=== PATIENT | male | born 1940 | race Caucasian/White ===

== ENCOUNTER → 2016-07-02 | Outpatient (CLI) | payer MEDICARE, BC ==
[2016-07-02 09:48] LABS: Blood Urea Nitrogen 20 mg/dL (9-20); Non-African American GFR(MDRD) >60 (>60 ml/min/1.73 sqM)
--- NOTE | 2016-07-02 10:26 | CT ---
"EXAMINATION TYPE: CT angio chest DATE OF EXAM: 07/02/2016 10:09 AM COMPARISON: NONE HISTORY: Shortness of breath on exertion CT DLP: 543.6 mGycm Automated exposure control for dose reduction was used. CONTRAST: CTA scan of the thorax is performed with IV Contrast, patient injected with 100 mL of Omnipaque 350, pulmonary embolism protocol. . FINDINGS: LUNGS: Subsegmental changes seen posteriorly suggestive of atelectasis. There is a tiny calcified gra nuloma within the right lower lobe posterior segment. Basilar atelectasis noted. There is basilar bro nchiectasis. Correlate for mild COPD. MEDIASTINUM: Within the left lower lobe distal branch there is a filling defect compatible with a sma ll pulmonary embolism. The heart is enlarged. Sternotomy wires are seen and there is coronary artery calcification. Atherosclerotic change of the aorta. There is a hiatal hernia. OTHER: Degenerative changes spine noted with a severe chronic appearing compression deformity in the lower thoracic region. IMPRESSION: 1. Findings suggest a small distal branch left pulmonary artery embolism. 2. Subsegmental changes posteriorly within both lungs likely related to areas of atelectasis. Pneumon itis not excluded. 3. Cardiomegaly and findings suggestive of COPD 4. Basilar mild bronchiectasis A Red message has been communicated to Stu Mosher DO via the [facility] | Critical Result sy stem on 07/02/2016 10:22 AM, Message ID [id number]."
== END ==
LOC: RADCTMAIN 08:45
PROVIDERS: ATTEND Internal Medicine Critical Care Medicine
DX: I51.7 Cardiomegaly (principal); J47.9 Bronchiectasis, uncomplicated
CPT/HCPCS: 82565; 84520; 71275; 36415; Q9967

== ENCOUNTER → 2016-09-15 | Outpatient (CLI) | payer MEDICARE, BC ==
[2016-09-15 09:14] LABS: ALT 30 U/L (21-72); AST 27 U/L (17-59); Alkaline Phosphatase 48 U/L (38-126); Anion Gap 9 mmol/L; Blood Urea Nitrogen 19 mg/dL (9-20); Carbon Dioxide 27 mmol/L (22-30); Chloride 105 mmol/L (98-107); Cholesterol 127 mg/dL (<200); Glucose 95 mg/dL (74-99); HDL Cholesterol 47 mg/dL (40-60); Non-African American GFR(MDRD) >60 (>60 ml/min/1.73 sqM); Potassium 4.6 mmol/L (3.5-5.1); Sodium 141 mmol/L (137-145); Total Bilirubin 0.6 mg/dL (0.2-1.3); Triglycerides 58 mg/dL (<150)
== END | disposition home or self-care (01) ==
LOC: LABWHC1 07:43
PROVIDERS: ATTEND Internal Medicine Interventional Cardiology
DX: E78.2 Mixed hyperlipidemia (principal)
CPT/HCPCS: 36415; 80053; 80061

== ENCOUNTER → 2016-10-07 | Outpatient (CLI) | payer MEDICARE, BC ==
[2016-10-07 11:00] LABS: Blood Urea Nitrogen 24 mg/dL (9-20); Non-African American GFR(MDRD) >60 (>60 ml/min/1.73 sqM)
--- NOTE | 2016-10-07 12:07 | CT ---
EXAMINATION TYPE: CT angio chest DATE OF EXAM: 10/07/2016 11:42 AM COMPARISON: Previous study dated 07/02/2016 HISTORY: F/U prior PE CT DLP: 704 mGycm Automated exposure control for dose reduction was used. CONTRAST: CTA scan of the thorax is performed with IV Contrast, patient injected with 100 mL of Omnipaque 350, pulmonary embolism protocol. . FINDINGS: There is dependent atelectasis at the lung bases. There is no significant axillary, mediastinal or hilar adenopathy. There is no evidence of pulmonary embolus. The root of the aorta is dilated measuring 4.1 cm. At the level of the proximal arch, the aorta measu res 3.9 cm. The proximal descending thoracic aorta is aneurysmal measuring 3.5 cm. At the level of th e aortic hiatus, the aorta is normal in caliber measuring 2.8 cm. The heart is enlarged. There is no pleural or pericardial fluid. There is coronary artery and other v ascular calcifications present. There is a small hiatal hernia. Visualized upper abdominal structures are otherwise unremarkable. There is hypertrophic spondylosis within the spine. IMPRESSION: 1. THIS EXAMINATION IS NEGATIVE FOR PULMONARY EMBOLUS. 2. THORACIC AORTIC ANEURYSM. 3. CARDIOMEGALY. 4. SMALL HIATAL HERNIA. 5. DEGENERATIVE CHANGES WITHIN THE SPINE.
== END | disposition home or self-care (01) ==
LOC: RADCTMAIN 10:08
PROVIDERS: ATTEND Internal Medicine Critical Care Medicine
DX: I71.2 Thoracic aortic aneurysm, without rupture (principal); I51.7 Cardiomegaly; I26.99 Other pulmonary embolism without acute cor pulmonale
CPT/HCPCS: 82565; 84520; 71275; 36415; Q9967

== ENCOUNTER → 2017-10-21 | Outpatient (CLI) | payer MEDICARE, BC ==
[2017-10-21 08:44] LABS: Albumin 3.7 g/dL (3.5-5.0); Calcium 9.4 mg/dL (8.4-10.2); Potassium 4.9 mmol/L (3.5-5.1); Total Bilirubin 0.3 mg/dL (0.2-1.3); Total Protein 6.5 g/dL (6.3-8.2)
== END | disposition home or self-care (01) ==
LOC: LABWHC1 07:15
PROVIDERS: ATTEND Internal Medicine Interventional Cardiology
DX: E78.2 Mixed hyperlipidemia (principal)
CPT/HCPCS: 36415; 80053; 80061

== ENCOUNTER → 2018-04-06 | Outpatient (CLI) | payer MEDICARE, BC ==
--- NOTE | 2018-04-06 11:25 | XR ---
EXAMINATION TYPE: XR chest 2V DATE OF EXAM: 04/06/2018 COMPARISON: 06/11/16 HISTORY: Shortness of breath TECHNIQUE: Frontal and lateral views of the chest are obtained. FINDINGS: Scattered senescent parenchymal changes noted. Hyperinflation compatible with COPD. No evidence for infiltrate. No evidence for atelectasis. Heart size is stable. Mediastinal structures are stable and grossly unremarkable. No evidence for hilar prominence. Degenerative changes dorsal spine. IMPRESSION: 1. No evidence for acute pulmonary disease.
--- NOTE | 2018-04-06 11:26 | CT ---
EXAMINATION TYPE: CT brain wo con DATE OF EXAM: 04/06/2018 COMPARISON: 04/19/2010 HISTORY: New daily persistant headache CT DLP: 1072.[address] of the brain was performed. The ventricles, basal cisterns and sulci overlying the cerebral convexities demonstrate mild enlargem ent. There is no evidence for intracranial hemorrhage or sulcal effacement. There is decreased attenuation about the periventricular white matter and deep white matter of both c erebral hemispheres, compatible with chronic small vessel ischemia. Differential diagnosis does inclu de demyelination. No mass effects are seen.No midline shift. Osseous calvarium is intact. Chronic sinusitis left maxillary sinus. If symptoms persist consider MRI. IMPRESSION: 1. Age related atrophic and chronic small vessel ischemic change without acute intracranial process s een at this time.
--- NOTE | 2018-04-06 11:56 | US ---
EXAMINATION TYPE: US carotid duplex BILAT DATE OF EXAM: 04/06/2018 COMPARISON: CLINICAL HISTORY: R51 new onset of headaches. Hx TIA x 6 years ago, HTN- controlled with meds. Dizzy . Cough. EXAM MEASUREMENTS: RIGHT: Peak Systolic Velocity (PSV) cm/sec ----- Right CCA: 74.6 ----- Right ICA: 74.6 ----- Right ECA: 82.3 ICA/CCA ratio: 1.0 RIGHT: End Diastole cm/sec ----- Right CCA: 13.1 ----- Right ICA: 19.7 ----- Right ECA: 0.0 LEFT: Peak Systolic Velocity (PSV) cm/sec ----- Left CCA: 89.2 ----- Left ICA: 98.2 ----- Left ECA: 62.5 ICA/CCA ratio: 1.1 LEFT: End Diastole cm/sec ----- Left CCA: 14.1 ----- Left ICA: 30.9 ----- Left ECA: 0.0 VERTEBRALS (direction of flow): Right Vertebral: Antegrade Left Vertebral: Antegrade Rhythm: Arrhythmia IMPRESSION: Bilateral wall thickening. Plaque seen throughout CCA's. No elevated velocities or sign ificant stenosis. Criteria for Assigning % of Stenosis / Diameter reduction (Estimation based on the indirect measurements of the internal carotid artery velocities (ICA PSV). 1. Normal (no stenosis)=ICA PSV < 125 cm/s: ratio < 2.0: ICA EDV<40 cm/s. 2. Less than 50% stenosis=ICA PSV < 125 cm/s: ratio < 2.0: ICA EDV<40 cm/s. 3. 50 to 69% stenosis=ICA PSV of 125 to 230 cm/s: ration 2.0 ? 4.0: ICA EDV 40-100 cm/s. 4. Greater than 70% stenosis to near occlusion= ICA PSV > 230 cm/s: ratio > 4.0: ICA EDV > 100 cm/s. 5. Near occlusion= ICA PSV velocities may be low or undetectable: variable ratio and ICA EDV. 6. Total occlusion=unable to detect flow.
== END | disposition home or self-care (01) ==
LOC: RADCTMAIN 10:56
PROVIDERS: ATTEND Midwife
DX: G31.1 Senile degeneration of brain, not elsewhere classified (principal); I67.82 Cerebral ischemia; I65.23 Occlusion and stenosis of bilateral carotid arteries; R05 Cough
CPT/HCPCS: 70450; 71046; 93880

== ENCOUNTER → 2018-04-27 | Outpatient (CLI) | payer MEDICARE, BC ==
[2018-04-27 11:59] LABS: Albumin 4.1 g/dL (3.80-4.90); Albumin/Globulin Ratio 1.71 (1.20-2.10); Anion Gap 7.7 mmol/L (4.00-12.00); Calcium 8.8 mg/dL (8.7-10.3); Carbon Dioxide 27.3 mmol/L (21.6-31.8); Globulin 2.4 g/dL (1.6-3.3); LDL Cholesterol,Calculated 52.8 mg/dL (0.0-131.0); Potassium 4.7 mmol/L (3.5-5.5); Total Bilirubin 0.3 mg/dL (0.2-1.2); Total Protein 6.5 g/dL (6.2-8.2); VLDL Calculation 33.2 mg/dL (5.00-40.00)
== END | disposition home or self-care (01) ==
LOC: LABWHC1 06:29
PROVIDERS: ATTEND Internal Medicine Interventional Cardiology
DX: E78.2 Mixed hyperlipidemia (principal)
CPT/HCPCS: 36415; 80053; 80061

== ENCOUNTER → 2018-11-30 | Outpatient (CLI) | payer MEDICARE, BC ==
--- NOTE | 2018-11-30 09:27 | XR ---
EXAMINATION TYPE: XR chest 2V DATE OF EXAM: 11/30/2018 COMPARISON: NONE HISTORY: Pre-MRI clearance. Evaluate for epicardial pacing leads. TECHNIQUE: Frontal and lateral views of the chest are obtained. FINDINGS: There is no focal air space opacity, pleural effusion, or pneumothorax seen. Post CABG ch anges of the chest are seen. No epicardial pacing wires/leads. The cardiac silhouette size is within normal limits. Flattening of the diaphragms on the lateral view suggests underlying COPD. The osseou s structures are intact. There is diffuse osseous demineralization and poor visualization of vertebra l body height. IMPRESSION: No acute cardiopulmonary process. Post CABG changes the chest. No epicardial pacing wire s are seen.
== END | disposition home or self-care (01) ==
LOC: RADXRMAIN 08:43
PROVIDERS: ATTEND Orthopaedic Surgery
DX: Z01.818 Encounter for other preprocedural examination (principal); Z95.1 Presence of aortocoronary bypass graft
CPT/HCPCS: 71046

== ENCOUNTER → 2019-06-22 | Outpatient (CLI) | payer MEDICARE, BC ==
--- NOTE | 2019-06-28 08:03 | HM ---
HOLTER MONITOR REPORT A 24-hour Holter monitor. A 24-hour Holter monitor for palpitations. The 24-hour Holter monitor shows sinus rhythm, first-degree AV block, 2% to 3% PVC burden, one 4-beat run of nonsustained ventricular tachycardia, one ventricular triplet. No sustained arrhythmias. MMODL / DALTONN: [id number] /
== END | disposition home or self-care (01) ==
LOC: RADECHMAIN 12:01
PROVIDERS: ATTEND Family Medicine
DX: I49.3 Ventricular premature depolarization (principal); I44.2 Atrioventricular block, complete; I47.2 Ventricular tachycardia
CPT/HCPCS: 93225; 93226

== ENCOUNTER → 2019-06-23 | Outpatient (CLI) | payer MEDICARE, BC ==
[2019-06-23 16:45] LABS: African American GFR (CKD) 73.6 (60.0-200.0); Albumin 4.2 g/dL (3.80-4.90); Albumin/Globulin Ratio 2.1 (1.60-3.17); Anion Gap 8.2 mmol/L (4.00-12.00); BUN/Creat Ratio 16.36 Ratio (12.00-20.00); Calcium 8.8 mg/dL (8.7-10.3); Carbon Dioxide 25.8 mmol/L (21.6-31.8); Chol/HDL Ratio 2.74; LDL Cholesterol,Calculated 61.4 mg/dL (0.0-131.0); Non-African American GFR(CKD) 63.5 (60.0-200.0); Potassium 4.2 mmol/L (3.5-5.5); Total Bilirubin 0.6 mg/dL (0.3-1.2); Total Protein 6.2 g/dL (6.2-8.2); VLDL Calculation 11.6 mg/dL (5.00-40.00)
== END | disposition home or self-care (01) ==
LOC: LABWHC1 08:02
PROVIDERS: ATTEND Nurse Practitioner Adult Health
DX: I10 Essential (primary) hypertension (principal); I25.10 Atherosclerotic heart disease of native coronary artery without angina pectoris; E78.2 Mixed hyperlipidemia
CPT/HCPCS: 36415; 80053; 80061

== ENCOUNTER → 2019-12-12 | Outpatient (CLI) | payer MEDICARE, BC ==
[2019-12-12 16:13] LABS: ALT 19 U/L (10-49); AST 22 U/L (14-35); African American GFR (CKD) 46.8 (60.0-200.0); Albumin/Globulin Ratio 1.63 (1.60-3.17); Alkaline Phosphatase 66 U/L (41-126); BUN/Creat Ratio 18.13 Ratio (12.00-20.00); Calcium 8.9 mg/dL (8.7-10.3); Carbon Dioxide 26.4 mmol/L (21.6-31.8); Chloride 107 mmol/L (96-109); Chol/HDL Ratio 2.48; Cholesterol 104 mg/dL (0-200); Globulin 2.4 g/dL (1.6-3.3); Glucose 97 mg/dL (70-110); Non-African American GFR(CKD) 40.4 (60.0-200.0); Potassium 4.6 mmol/L (3.5-5.5); Sodium 140 mmol/L (135-145); Total Bilirubin 0.4 mg/dL (0.2-1.2); Total Protein 6.3 g/dL (6.2-8.2); Triglycerides <50.0 mg/dL (0.0-149.0)
== END | disposition home or self-care (01) ==
LOC: LABWHC1 07:58
PROVIDERS: ATTEND Internal Medicine Interventional Cardiology
DX: E78.2 Mixed hyperlipidemia (principal)
CPT/HCPCS: 36415; 80053; 80061

== ENCOUNTER → 2020-01-02 | Outpatient (CLI) | payer MEDICARE, BC ==
--- NOTE | 2020-01-02 09:39 | XR ---
"EXAMINATION TYPE: XR lumbosacral spine min 4V DATE OF EXAM: 01/02/2020 CLINICAL HISTORY: Chronic back pain from a long time ago. TECHNIQUE: Frontal, lateral, and oblique images of the lumbar spine are obtained. COMPARISON: None FINDINGS: There are 5 lumbar type vertebral bodies identified. Osseous structures are demineralized. There is dextroconvex scoliosis centered at L3 level. Grade 1 anterolisthesis L4 on L5. Severe disc space narrowing L4-L5 and L5-S1 levels. Moderate disc space narrowing L3-L4 level. Moderate to severe compression type fracture L1 level presumed chronic. Grade 1 retrolisthesis T12 and L1. Moderate to severe anterior spurring T12-L1 and L1-L2 levels. Moderate disc space narrowing L1-L2 level. The obli que images value is degraded by underlying scoliosis. Densely calcified aorta with AAA measuring up t o 4.4 cm AP diameter. Follow-up advised to better evaluate and characterize. IMPRESSION: As above. A Yellow level critical message alert has been initiated for Moshe Graves MD via the [employer] [facility] | Critical Results System on 01/02/2020 9:37 AM. This message alert has been sent to Moshe Graves MD via the preferences provided by the clinician for the receipt of Radiology Critical Findings. Mess age ID [id number]."
== END | disposition home or self-care (01) ==
LOC: RADXRMAIN 09:07
PROVIDERS: ATTEND Family Medicine
DX: M48.061 Spinal stenosis, lumbar region without neurogenic claudication (principal); M43.16 Spondylolisthesis, lumbar region; M41.86 Other forms of scoliosis, lumbar region
CPT/HCPCS: 72110

== ENCOUNTER → 2020-01-23 | Outpatient (CLI) | payer MEDICARE, BC ==
--- NOTE | 2020-01-23 16:20 | US ---
EXAMINATION TYPE: US duplex aorta DATE OF EXAM: 01/23/2020 COMPARISON: F/u to x-ray showing AAA CLINICAL HISTORY: I74.2 Embolism and thrombosis of arteries of the. EXAM MEASUREMENTS: Abdominal Aorta: Proximal: obscured by bowel gas Mid: 3.8 x 3.5cm AAA Distal: obscured by bowel gas Bifurcation: obscured by bowel gas Severe overlying bowel gas, exam shows very limited visualization of AAA. Aneurysm may be overestimat ed or underestimated. IMPRESSION: 1. There appears to be some prominence of the mid abdominal aorta with an AP diameter of 3.8 cm. Some fusiform prominence should be considered. 2. Abdominal aorta has limited evaluation due to the excessive bowel gas.
== END | disposition home or self-care (01) ==
LOC: RADUSWWP 07:32
PROVIDERS: ATTEND Family Medicine
DX: I71.4 Abdominal aortic aneurysm, without rupture (principal)
CPT/HCPCS: 93979

== ENCOUNTER → 2020-01-27 | Outpatient (CLI) | payer MEDICARE, BC ==
--- NOTE | 2020-01-27 09:33 | MR ---
EXAMINATION TYPE: MR lumbar spine wo con DATE OF EXAM: 01/27/2020 COMPARISON: Lumbar spine x-ray January 02, 2020. CT chest October 07, 2016 HISTORY: Compression fx per order, pain TECHNIQUE: Multiplanar, multisequence imaging of the lumbar spine is performed without IV contrast. FINDINGS: There is persistent dextroconvex scoliosis centered upper lumbar spine Sagittal images of t he lumbar spine show vertebral body heights to appear satisfactory in the lumbar spine. Moderate ante rior height loss and superior height loss T12 level not significantly changed from 2017 CT chest. Mul tilevel disc desiccation is present. Advanced disc space narrowing and vacuum disc phenomenon L4-L5 l evel, Modic type I endplate changes noted at this level. Additional mild multilevel disc space narrow ing. The conus medullaris is normal in position and signal ending at T12-L1 disc space level. There i s additional heterogeneous Modic type II endplate changes posterior T12-L1 level. Slight grade 1 ante rolisthesis L3 on L4. Axial images at the T12-L1 level shows moderate broad-based posterior disc protrusion mildly effacing anterior thecal sac with mild left-sided facet arthropathy and ligamentum flavum hypertrophy. There is [id number] left-sided neural foraminal narrowing. Axial images at the L1-L2 level show mild to moderate facet degenerative changes bilaterally. There i s mild broad disc bulge. There is moderate left and mild right-sided neural foraminal narrowing. Axial images at L2-L3 level show moderate broad disc bulge and [id number] facet arthropathy and ligamentum flavum hypertrophy. There is mild effacement of the anterior left posterior lateral theca l sac. There is moderate left and mild right-sided neural foraminal narrowing. Axial images at L3-L4 level show spondylolisthesis with moderate facet arthropathy bilaterally. There is moderate broad disc bulge. There is effacement of the anterior and right posterior lateral thecal sac. There is moderate right greater than left bilateral neural foraminal narrowing. Axial images at the L4-L5 level show partially sacralized right L5 segment. There is posterior spur d isc complex mildly effaces the anterior thecal sac. There is mild right greater than left facet arthr opathy. Left-sided neural foramen is patent. Right side shows moderate narrowing. Axial images at the L5-S1 level on image 2 show tiny central disc protrusion but spinal canal is pres erved. Bilateral neural foramina are patent. Mild/moderate facet arthropathy bilaterally. There is co nfirmation of infrarenal AAA measuring up to 3.5 cm AP diameter axial image 19. This correlates john r with recent ultrasound. IMPRESSION: Scoliosis redemonstrated. Multilevel degenerative changes noted as detailed above. Sacral ized right L5 segment noted. Confirmation of AAA measuring up to 3.5 cm AP diameter on this study.
== END | disposition home or self-care (01) ==
LOC: RADMRIMAIN 08:15
PROVIDERS: ATTEND Nurse Practitioner Family
DX: M47.816 Spondylosis without myelopathy or radiculopathy, lumbar region (principal); M41.9 Scoliosis, unspecified; M43.27 Fusion of spine, lumbosacral region
CPT/HCPCS: 72148

== ENCOUNTER → 2020-04-03 | Outpatient (CLI) | payer MEDICARE, BC ==
[2020-04-03 08:30] VITALS: BP 160/79; PULSE 56; RESP 16; TEMP 97.5
--- NOTE | 2020-04-03 08:43 | P.PAINCN ---
History of Present Illness - Reason for Consult Consult date: 04/03/20 - History of Present Illness This is a 79-year-old patient referred by Dr. Cope with a chief complaint of chronic pain in the low back. Patient has a long-standing history of low back pain. 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 His pain is located in his low back with no radiation into the lower extremity. He does endorse what he calls hot spot over his left anterior thigh that occasionally bothers him. He described as dull and aching and worse at night. It is alleviated almost to 0 out of 10 when he is sitting and worse with activity. Currently it is 0 out of 10, at its worst it's a 5-6 out of 10. He is currently doing physical therapy, just started yesterday. He feels that this is already helping him. He has not taken pain medications in the past and he can remember. He did get an injection many years ago, thought it might be an epidural but this did not help him at all. Patient denies adverse drug effects from medications. Patient also denies new-onset weakness, bowel/bladder incontinence, or any other signs or symptoms of cauda equina syndrome. There are no signs of acute intoxication, and no indications of medication diversion or overuse. In addition to above, 13-point review of systems is also negative for chest pain, shortness of breath, changes in vision, changes in hearing, new onset weakness, abdominal pain, diarrhea, extreme fatigue, malaise, fever, skin changes, homicidal or suicidal ideation, or bowel or bladder incontinence. Physical exam: Vital Signs: Reviewed in EMR GENERAL: Well appearing, in no acute distress PSYCH: Mood and affect is appropriate. Awake, alert, and oriented SKIN: Skin color, texture, turgor normal, no rashes or lesions HEENT: Normocephalic, atraumatic. EOM intact CV: No pedal edema RESP: Respirations are unlabored, no audible wheezing GI: Abdomen non-distended MUSCULOSKELETAL: Bilateral upper and lower extremity strength is normal and symmetric. No atrophy or tone abnormalities are noted. Lumbar spine: Straight leg raising in the sitting position is negative for radicular pain. No pain to palpation over the lumbar spine and paraspinous muscles. Negative for pain with facet loading and back extension/rotation. Normal range of motion without pain reproduction Buttocks: No pain to palpation over the PSIS, Karen test is negative Extremities: Peripheral joint ROM is full and pain free without obvious instability or laxity in all four extremities. No edema or skin discolorations noted. Gait: Gait is normal NEUR: Bilateral upper and lower extremity coordination and muscle stretch reflexes are physiologic and symmetric. Negative clonus. No loss of sensation is noted. Cranial nerves are grossly intact. Imaging: Lumbar MRI from 01/27/20 reviewed Assessment: 1. Axial low back pain likely due to facet arthropathy 2. Myofascial pain Plan: 1. Explanation: Diagnoses, prognoses, and multiple treatment options including but not limited to physical therapy, interventional therapies, medication management and surgery were discussed with the patient and all questions were answered to the patient's satisfaction. 2. Investigations: Lumbar MRI 01/26 reviewed 3. Counseling: The patient was counseled for 3 minutes on SMOKING CESSATION, BODY MASS INDEX, EXERCISE. Specifically, the patient was instructed regarding the importance of smoking cessation, weight control, and exercise in the context of both chronic pain and overall health. 4. Procedures: Given his MRI findings and symptoms, I have scheduled him for a bilateral L2-L3 and L3-L4 steroid facet joint injection. 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 5. Consultations: continue PT 6. Medications: Written for meloxicam 7.5 mg once a day. I have also written for lidocaine patches for him as well. I instructed him he can place his over his low back and area of left thigh pain as needed 7. Disposition: for above procedure Past Medical History Past Medical History: Cancer, CVA/TIA, Eye Disorder, Hyperlipidemia, Hypertension, Memory Impairment, Musculoskeletal Disorder, Osteoarthritis (OA), Prostate Disorder Additional Past Medical History / Comment(s): hx. prostate cancer 15 yrs. ago- radioactive seeds implanted, skin cancer, pancreatitis several years ago, TIA 5- 6 yrs. ago-memory impairment, macular degeneration left eye History of Any Multi-Drug Resistant Organisms: None Reported Past Surgical History: Coronary Bypass/CABG, Orthopedic Surgery, Tonsillectomy Additional Past Surgical History / Comment(s): triple bypass 15 yrs. ago, left rotator cuff repair Past Anesthesia/Blood Transfusion Reactions: No Reported Reaction Smoking Status: Former smoker Medications and Allergies Home Medications Medication Instructions Recorded Confirmed Type Aspirin 81 mg PO DAILY 03/29/20 03/29/20 History Doxazosin [Cardura] 4 mg PO DAILY 03/29/20 03/29/20 History Metoprolol Tartrate [Lopressor] 25 mg PO BID 03/29/20 03/29/20 History Multivitamins, Thera [Multivitamin 1 tab PO DAILY 03/29/20 03/29/20 History (formulary)] Olmesartan [Benicar] 20 mg PO DAILY 03/29/20 03/29/20 History Simvastatin [Zocor] 20 mg PO HS 03/29/20 03/29/20 History Triamterene/Hydrochlorothiazid 1 each PO DAILY 03/29/20 03/29/20 History [Triamterene-Hctz 37.5-25 mg Tb] Vit C/E/Zn/Coppr/Lutein/Zeaxan 1 each PO DAILY 03/29/20 03/29/20 History [Preservision Areds 2 Softgel] Allergies Allergy/AdvReac Type Severity Reaction Status Date / Time No Known Allergies Allergy Verified 03/29/20 14:46 PQRS Measure Charge Sheet Measure #226: Tobacco Use: Screen & Cessation Intervention: Pt not a tobacco user Measure #111: Pneumonia Vaccination: Pneumococcal vaccine NOT administered or previously given Measure #47: Advance Care Plan: Advance care planning discussed & documented, pt chose/unable to give Measure #412: Opioid Treatment Agreement: No documentation of signed opioid tr eatment agreement Measure #317: Preventitive Care & Scrn High Bld Press & F/U: Normal blood pressure, f/u not required Measure #128: Body Mass Index (BMI) Screening & Follow-up: BMI documented within normal parameters Measure #131: Pain Assessment & Follow-up: Pain positive & plan documented, Follow-up scheduled PQRS Narrative: Pain Intensity [Lower Back] 0 Scale Used Numeric (1 - 10) Hx Alcohol Use (MH) No Home Medications: Ambulatory Orders Aspirin 81 mg PO DAILY 03/29/20 Doxazosin [Cardura] 4 mg PO DAILY 03/29/20 Metoprolol Tartrate [Lopressor] 25 mg PO BID 03/29/20 Multivitamins, Thera [Multivitamin (formulary)] 1 tab PO DAILY 03/29/20 Olmesartan [Benicar] 20 mg PO DAILY 03/29/20 Simvastatin [Zocor] 20 mg PO HS 03/29/20 Triamterene/Hydrochlorothiazid [Triamterene-Hctz 37.5-25 mg Tb] 1 each PO DAILY 03/29/20 Vit C/E/Zn/Coppr/Lutein/Zeaxan [Preservision Areds 2 Softgel] 1 each PO DAILY 03/29/20
== END | disposition home or self-care (01) ==
LOC: PNWHC3 08:06
PROVIDERS: ATTEND Anesthesiology
DX: M47.816 Spondylosis without myelopathy or radiculopathy, lumbar region (principal); M54.5 Low back pain; M79.18 Myalgia, other site; E78.5 Hyperlipidemia, unspecified; I10 Essential (primary) hypertension; Z79.82 Long term (current) use of aspirin; Z79.899 Other long term (current) drug therapy
CPT/HCPCS: 99211

== ENCOUNTER 2020-04-18 06:23 | Day surgery (SDC) | payer MEDICARE, BC ==
[2020-04-16 14:12] VITALS: BMI 31.3
[~2020-04-18 06:23] MED LIST: LACTATED RINGERS 1,000 ML IV SCH
[2020-04-18 06:51] VITALS: BP 130/64; PULSE 58; RESP 16; TEMP 97.6
--- NOTE | 2020-04-18 07:13 | P.PN ---
Progress Note - Text Progress Note Date: 04/18/20 This 79 years old male who was scheduled to have bilateral medial branch blocks, to target the facet joint at L2-3 and L3 4, and today is supposed to be the first diagnostic block, during the interview, patient reported that he is leaving to [place] next weekend, and he was expecting ,that the treatment will be completed today, I explained to the patient, and his ,that this will be of process will take a few weeks, before we can do the radiofrequency ablation of the medial branch, and today will be the first diagnostic block, in couple of weeks we will do the second diagnostic block, and if he had positive result, then we will proceed with the radiofrequency ablation of the medial branch, and the process needs a few weeks ,before we can finish the treatment, and because patient leaving to [place] within few days, the best option is to cancel the procedure and reschedule the patient after he comes back from [place]
== END 2020-04-18 07:06 | disposition home or self-care (01) ==
LOC: ORPAIN 06:23
PROVIDERS: ATTEND Specialist
DX: M51.16 Intervertebral disc disorders with radiculopathy, lumbar region (principal); Z53.8 Procedure and treatment not carried out for other reasons

== ENCOUNTER → 2020-09-02 | Outpatient (CLI) | payer MEDICARE, BC ==
[2020-09-02 17:33] LABS: Basophils # (A) 0.04 X 10*3/uL (0.00-0.10); Basophils % (A) 0.6 %; Eosinophils # (A) 0.18 X 10*3/uL (0.04-0.35); Eosinophils % (A) 2.8 %; HCT 35.3 % (39.6-50.0); HGB 11.3 g/dL (13.0-17.0); Lymphocytes % (A) 23.6 %; MCH 32.1 pg (27.0-32.0); MCV 100.3 fL (80.0-97.0); Monocytes # (A) 0.68 X 10*3/uL (0.20-1.00); Monocytes % (A) 10.7 %; Neutrophils # (A) 3.93 X 10*3/uL (1.80-7.70); Platelet Count 222 X 10*3/uL (140-440); RBC 3.52 X 10*6/uL (4.40-5.60); RDW 12.5 % (11.5-14.5); WBC 6.35 X 10*3/uL (4.50-10.00)
[2020-09-02 20:21] LABS: ALT 19 U/L (10-49); AST 24 U/L (14-35); African American GFR (CKD) 59.7 (60.0-200.0); Albumin/Globulin Ratio 1.65 (1.60-3.17); Alkaline Phosphatase 58 U/L (41-126); BUN/Creat Ratio 18.46 Ratio (12.00-20.00); Calcium 8.8 mg/dL (8.7-10.3); Carbon Dioxide 25.9 mmol/L (21.6-31.8); Chloride 107 mmol/L (96-109); Chol/HDL Ratio 2.78; Cholesterol 103 mg/dL (0-200); Globulin 2.3 g/dL (1.6-3.3); Glucose 92 mg/dL (70-110); LDL Cholesterol,Calculated 55.6 mg/dL (0.0-131.0); Non-African American GFR(CKD) 51.5 (60.0-200.0); Potassium 4.7 mmol/L (3.5-5.5); Sodium 139 mmol/L (135-145); Total Bilirubin 0.3 mg/dL (0.2-1.2); Total Protein 6.1 g/dL (6.2-8.2)
[2020-09-02 20:44] LABS: Prostate Specific Antigen <0.1 ng/mL (0.0-6.5)
== END | disposition home or self-care (01) ==
LOC: LABWHC1 07:34
PROVIDERS: ATTEND Nurse Practitioner Adult Health
DX: Z00.00 Encounter for general adult medical examination without abnormal findings (principal); E78.2 Mixed hyperlipidemia; Z85.46 Personal history of malignant neoplasm of prostate
CPT/HCPCS: 36415; 80053; 80061; 84153; 85025

== ENCOUNTER 2020-09-06 07:28 | Day surgery (SDC) | payer MEDICARE, BC ==
[2020-09-05 08:53] VITALS: BMI 32.3
[2020-09-06 07:54] VITALS: TEMP 97
[2020-09-06] MEDS ORDERED: LACTATED RINGERS 1,000 ML IV ONE (08:02)
[2020-09-06] MEDS ORDERED: LIDOCAINE 1% (10MG/ML) FOR IV START INTRADERMA ONE (08:02)
[2020-09-06] MEDS ORDERED: IOPAMIDOL M200 10 ML VIAL ONE (08:38)
[2020-09-06] MEDS ORDERED: ROPIVACAINE 5MG/ML 20ML VIAL ONE (08:38)
[2020-09-06] MEDS ORDERED: TRIAMCINOLONE ACETONIDE 40 MG/ML 1 ML VIAL ONE (08:38)
[2020-09-06] MEDS ORDERED: fentaNYL (PF) 50 MCG/ML 2 ML AMP ONE (08:38)
--- NOTE | 2020-09-06 08:52 | P.PCN ---
Date of Procedure: 09/06/20 Description of Procedure: PREOPERATIVE DIAGNOSIS : Lumbar spondylosis with Facet Arthropathy without myelopathy POSTOPERATIVE DIAGNOSIS: same PROCEDURE: first Diagnostic lumbar medial branch block with fluoroscopy at L1, L2, L3 [bilateral] which covers facets L2-3 and L3-4 ANESTHESIA: Monitored anesthesia care as per anesthesia department. Fluoroscopy was used for the procedure and images were saved in the radiology portion of the chart. Surgeon: Carlos Mccrary MD PROCEDURE INDICATION: Lumbar back pain without radiculopathy, not responsive to conservative management. PROCEDURE DESCRIPTION: the patient was seen and identified in the preop holding area , risks and benefits and possible complications of the procedure and alternatives were discussed with the patient, and the patient agreed to proceed with the procedure and signed the consent . IV was started , vital signs were monitored during the procedure and fluoroscopy was used to maximize the benefit and accuracy of the needle placement, and sedation was given to decrease patient anxiety. Patient was taken to the procedure room and placed in prone position. The lumbar region was prepped using chlorhexidineX-2. Under strict sterile technique using AP fluoroscopy the bilateral sacral ala were identified and using ipsilateral oblique fluoroscopy ,the junction of the transverse process and the superior articulating process of the L2, L3, L4 vertebra which corresponds to the fluoroscopy image of the eye of the Brannon dog for the medial branches were identified. Subsequently, after local infiltration of skin with lidocaine 1% 0.2 mL at each level , a 25-gauge 3.5" Quincke-type needle was placed at the junction of the base of the transverse process and the superior articular process at the appropriate level as well as the sacral ala, and the needle was advanced until the periosteum contacted, needle placement confirmed with AP and oblique fluoroscopy, 0.2 mL of Isovue 200 per level was injected which revealed no vascular uptake and after negative aspiration. I cheyanne up 5 mL of 0.5% ropivacaine and 1 mL of 40 mg/mL kenalog and injected 1 mL of this injectate at each level and the needle subsequently removed . A total of [2 levels injected bilaterally] At the end of the procedure and the needles were removed and a bandage applied after the skin was cleaned. The patient was taken to recovery room in stable condition and monitors in the recovery room for 20-30 minutes and discharged home in stable condition after discharge criteria met and patient will follow up in clinic in 2 weeks EBL: Minimal COMPLICATION: None.
[2020-09-06] MEDS ORDERED: IV FLUID CONTINUATION 1,000 ML IV ONE (08:57)
--- NOTE | 2020-09-06 09:08 | FL ---
EXAMINATION TYPE: FL guided pain mgmt statistic DATE OF EXAM: 09/06/2020 CLINICAL HISTORY: Low back pain. TECHNIQUE: Fluoroscopy. COMPARISON: None. FINDINGS: Fluoroscopic guidance was provided during pain relief procedure performed by Dr. Price . A total of 10 seconds of fluoroscopic time was utilized during the procedure and two spot images a re acquired. Images acquired shows needle localization at levels in the lumbar spine. IMPRESSION: As Above.
[2020-09-06 09:14] VITALS: BP 119/61; PULSE 58; RESP 16
== END 2020-09-06 09:35 | disposition home or self-care (01) ==
LOC: ORPAIN 07:28
PROVIDERS: ATTEND Anesthesiology
DX: M47.816 Spondylosis without myelopathy or radiculopathy, lumbar region (principal); I25.10 Atherosclerotic heart disease of native coronary artery without angina pectoris; I10 Essential (primary) hypertension; E78.5 Hyperlipidemia, unspecified; Z85.46 Personal history of malignant neoplasm of prostate; Z86.73 Personal history of transient ischemic attack (TIA), and cerebral infarction without residual deficits; M19.90 Unspecified osteoarthritis, unspecified site; Z95.1 Presence of aortocoronary bypass graft; Z79.82 Long term (current) use of aspirin; Z79.899 Other long term (current) drug therapy
CPT/HCPCS: 64493; 64494; J3301; J3010; Q9966; J2795

== ENCOUNTER → 2020-09-25 | Outpatient (CLI) | payer MEDICARE, BC ==
[2020-09-25 08:25] VITALS: BP 134/72; PULSE 58; RESP 16; TEMP 97.7
--- NOTE | 2020-09-25 08:38 | P.PN ---
Subjective Progress Note Date: 09/25/20 This is a follow-up visit for this 80 years old male with a chronic history of severe low back pain, he is diagnosed with lumbar spondylosis with lumbar facet arthropathy, recentley we have done diagnostic medial branch block lumbar area, that excellent pain relief after the block history as before the block was 7/10, dropped to 0/10 after the block and he was able to do more activity, he denies any fever or night sweats he denies any motor or sensory deficits, he denies any change in the bowel movement or urination Objective - Vital Signs Vital signs: Vital Signs Temp 97.7 F 09/25/20 08:20 Pulse 58 L 09/25/20 08:20 Resp 16 09/25/20 08:20 BP 134/72 09/25/20 08:20 Pulse Ox 96 09/25/20 08:20 - Exam Vital Signs: Reviewed in EMR GENERAL: Well appearing, in no acute distress PSYCH: Mood and affect is appropriate. Awake, alert, and oriented SKIN: Skin color, texture, turgor normal, no rashes or lesions HEENT: Normocephalic, atraumatic. EOM intact MUSCULOSKELETAL: Bilateral upper and lower extremity strength is normal and symmetric. No atrophy or tone abnormalities are noted. Lumbar spine: Straight leg raising in the sitting position is negative for r adicular pain. No pain to palpation over the lumbar spine and paraspinous muscles. Negative for pain with facet loading =+ bilaterally NEUR: Bilateral upper and lower extremity coordination and muscle stretch reflexes are physiologic and symmetric. Negative clonus. No loss of sensation is noted. Cranial nerves are grossly intact. Assessment and Plan Plan: Assessment and plan=1-lumbar spondylosis with lumbar facet arthropathy without myelopathy he had excellent pain relief after the first diagnostic medial branch block and he will be scheduled to have second diagnostic medial branch block at L1, L2, L3, bilaterally - PQRS measures = - Patient's medications are documented in the chart. -Tobacco use is negative and counseling.Given. -Patient's has not received pneumococcal vaccine. -Advanced care planning discussed, patient not eligible. -Opiate contract not signed. -Pain positive and follow-up visit/procedure is scheduled. -Patient's blood pressure measured [134/72 ] , and documented in the record ,and patient will follow up with the primary care. -Patient's weight was measured and body mass index [31.3 ] above the normal limits and counseling was done. and patient instructed to follow-up with the primary care physician. -Patient was not identified as an unhealthy alcohol user Time with Patient: Less than 30
== END ==
LOC: PNWHC3 08:07
PROVIDERS: ATTEND Specialist
DX: M47.816 Spondylosis without myelopathy or radiculopathy, lumbar region (principal)
CPT/HCPCS: 99211

== ENCOUNTER → 2020-10-15 | Outpatient (CLI) | payer MEDICARE, BC ==
--- NOTE | 2020-10-15 10:12 | US ---
EXAMINATION TYPE: US duplex aorta DATE OF EXAM: 10/15/2020 COMPARISON: US 01/23/2020 CLINICAL HISTORY: I71.4 AAA. Takes medication for HTN. EXAM MEASUREMENTS: Abdominal Aorta: Proximal: 3.5 x 3.0cm Mid: 2.7 x 2.5cm Distal: 2.6 x 2.5cm Bifurcation: Right DONNA = 1.9 x 2.0cm; Left DONNA = 1.2 x 1.3cm. Fusiform appearance to abdominal aorta with enlarged portions measured; and enlarged right DONNA with i ntimal wall changes in bilateral DONNA. Color flow patency is noted in AA and into DONNA bilaterally. IMPRESSION: Proximal abdominal aortic aneurysm measures up to 3.5 cm, previously measured up to 3.6 cm.
--- NOTE | 2020-10-15 10:39 | CT ---
EXAMINATION TYPE: CT brain w con DATE OF EXAM: 10/15/2020 COMPARISON: CT brain 04/06/2018 HISTORY: Memory Impairment CT DLP: 1098.8 mGycm Automated exposure control for dose reduction was used. CONTRAST: CT scan of the head is performed with IV Contrast, patient injected with 100 mL of Isovue 300. FINDINGS: There is no abnormal enhancing mass or midline shift identified. The ventricles and sulci are stable , extra-axial fluid over the left frontal region causes some local mass effect on the frontal lobe as on prior exam, thickness of the extra-axial fluid which show cerebral spinal fluid density is approx imately 2.6 cm on the coronal image 20, similar to prior exam. Medial to the right cerebellar hemisph ere is also a low-attenuation area measuring 2.3 x 0.8 x 1 cm short cerebral spinal fluid attenuation similar to prior There are dense cerebral vascular calcifications. Cortical atrophy is noted. Perive ntricular white matter shows patchy low attenuation. The globes are intact and the visualized sinuses are clear. IMPRESSION: There may be an arachnoid cyst over the left frontal lobe causing some local mass effect on the front al cortex. Possible smaller arachnoid cyst posterior fossa. There is age-related atrophy and probable chronic small vessel ischemic change.
== END | disposition home or self-care (01) ==
LOC: RADCTMAIN 08:33
PROVIDERS: ATTEND Family Medicine
DX: I71.4 Abdominal aortic aneurysm, without rupture (principal); I10 Essential (primary) hypertension; R41.3 Other amnesia
CPT/HCPCS: 82565; 84520; 93979; 70460; 36415; Q9967

== ENCOUNTER 2020-10-17 06:58 | Day surgery (SDC) | payer MEDICARE, BC ==
[2020-10-17 07:27] VITALS: TEMP 98
[2020-10-17] MEDS ORDERED: fentaNYL (PF) 50 MCG/ML 2 ML AMP ONE (08:03)
[2020-10-17] MEDS ORDERED: ROPIVACAINE 5MG/ML 20ML VIAL ONE (08:03)
[2020-10-17] MEDS ORDERED: TRIAMCINOLONE ACETONIDE 40 MG/ML 1 ML VIAL ONE (08:03)
[2020-10-17] MEDS ORDERED: MIDAZOLAM 2 MG/2 ML VIAL ONE (08:03)
--- NOTE | 2020-10-17 08:25 | P.PCN ---
Date of Procedure: 10/17/20 Surgeon: Bert Cabrera Pathology: none sent Condition: stable Disposition: PACU Description of Procedure: PREOPERATIVE DIAGNOSIS : Lumbar spondylosis with Facet Arthropathy without myelopathy POSTOPERATIVE DIAGNOSIS: same PROCEDURE: first Diagnostic lumbar medial branch block with fluoroscopy at L1, L2, L3 [bilateral] which covers facets L2-3 and L3-4 ANESTHESIA: local with 1% lidocaine and moderate IV conscious sedation Fluoroscopy was used for the procedure and images were saved in the radiology portion of the chart. Surgeon: Carlos Mccrary MD PROCEDURE INDICATION: Lumbar back pain without radiculopathy, not responsive to conservative management. PROCEDURE DESCRIPTION: the patient was seen and identified in the preop holding area , risks and benefits and possible complications of the procedure and alternatives were discussed with the patient, and the patient agreed to proceed with the procedure and signed the consent . IV was started , vital signs were monitored during the procedure and fluoroscopy was used to maximize the benefit and accuracy of the needle placement, and sedation was given to decrease patient anxiety. Patient was taken to the procedure room and placed in prone position. The lumbar region was prepped using chlorhexidineX-2. the patient has severe scoliosis on the AP view of fluoroscopy.Under strict sterile technique using AP fluoroscopy the bilateral sacral ala were identified and using ipsilateral oblique fluoroscopy ,the junction of the transverse process and the superior articulating process of the L2, L3, L4 vertebra which corresponds to the fluoroscopy image of the eye of the Brannon dog for the medial branches were identified. Subsequently, after local infiltration of skin with lidocaine 1% 0.2 mL at each level , a 22-gauge 3.5" Quincke-type needle was placed at the junction of the base of the transverse process and the superior articular process at the appropriate level as well as the sacral ala, and the needle was a dvanced until the periosteum contacted, needle placement confirmed with AP and oblique fluoroscopy, a solution of 5 mL of 0.5% ropivacaine and 1 mL of 40 mg/mL kenalog was prepared and I injected 1 mL of this injectate at each level and the needle subsequently removed . A total of [2 levels injected bilaterally] At the end of the procedure and the needles were removed and a bandage applied after the skin was cleaned. The patient was taken to recovery room in stable condition and monitors in the recovery room for 20-30 minutes and discharged home in stable condition after discharge criteria met and patient will follow up in clinic in 2 weeks EBL: Minimal COMPLICATION: None.
[2020-10-17] MEDS ORDERED: IV FLUID CONTINUATION 1,000 ML IV ONE (08:30)
[2020-10-17 08:34] VITALS: RESP 16
[2020-10-17 08:49] VITALS: BP 118/68; PULSE 68
--- NOTE | 2020-10-17 09:15 | FL ---
EXAMINATION TYPE: FL guided pain mgmt statistic DATE OF EXAM: 10/17/2020 CLINICAL HISTORY: Mid to Low back pain. TECHNIQUE: Fluoroscopy. COMPARISON: None. FINDINGS: Fluoroscopic guidance was provided during pain relief procedure performed by Dr. Cabrera . A total of 10 seconds of fluoroscopic time was utilized during the procedure and 4 spot images are acquired. Images acquired shows needle localization at several levels nearly thoracolumbar junction. IMPRESSION: As Above.
== END 2020-10-17 09:00 | disposition home or self-care (01) ==
LOC: ORPAIN 06:58
PROVIDERS: ATTEND Anesthesiology
DX: M47.816 Spondylosis without myelopathy or radiculopathy, lumbar region (principal); Z79.82 Long term (current) use of aspirin
CPT/HCPCS: 64493; 64494; 64495; J2250; J3301; J3010; J2795; 99152

== ENCOUNTER → 2020-11-13 | Outpatient (CLI) | payer MEDICARE, BC ==
[2020-11-13 08:14] VITALS: BP 101/53; PULSE 51; RESP 18; TEMP 97.6
--- NOTE | 2020-11-13 08:33 | P.PN ---
Subjective Progress Note Date: 11/13/20 This is a follow-up visit for this 80 years old male with a chronic history of severe low back pain, he is diagnosed with lumbar spondylosis with lumbar facet arthropathy, recentley we have done diagnostic medial branch block lumbar area,x2 ,he had excellent pain relief after the block history as before the block was 7/10, dropped to 0/10 after the block and he was able to do more activity, he denies any fever or night sweats he denies any motor or sensory deficits, he denies any change in the bowel movement or urination Physical Examinations : -Constitutiona : Cooperative , not in acute distress . -HEENT : nech : supple , no Lymphadenopathy , normal thyroid size . : eyes : no ptosis , no icterus, no photophobia . - neurologic : Cranial nerve II to XII intact , no focal neurological deffecit . -psychatric : alert , oriented X 3 , appropriate affect , intact judgment and insight . -Lymphatic : no Lymphadenopathy . - musculoskeltal : Lumber spine moter stegnth lower extremities ,thigh and legs 5/5 Right side , 5/5 Left side deep tendon reflexes : normal Knee Jerk , normal ankle Jerk lumber facet Loading Test =positive Right , positive Left Range of motion of the lumbar spine Flexion 30 degrees, extension 10 degrees strait leg raising test = negative bilaterally Fabere test= negative bilaterally . Assessment and plan=1-lumbar spondylosis with lumbar facet arthropathy without myelopathy he had excellent pain relief after the diagnostic medial branch block X2 and he will be scheduled to have RFA medial branch block at L1, L2, L3, bilaterally - PQRS measures = - Patient's medications are documented in the chart. -Tobacco use is negative and counseling.Given. -Patient's has not received pneumococcal vaccine. -Advanced care planning discussed, patient not eligible. -Opiate contract not signed. -Pain positive and follow-up visit/procedure is scheduled. -Patient's blood pressure measured [101/53 ] , and documented in the record ,and patient will follow up with the primary care. -Patient's weight was measured and body mass index [32.6 ] above the normal limits and counseling was done. and patient instructed to follow-up with the primary care physician. -Patient was not identified as an unhealthy alcohol user Objective - Vital Signs Vital signs: Vital Signs Temp 97.6 F 11/13/20 08:10 Pulse 51 L 11/13/20 08:10 Resp 18 11/13/20 08:10 BP 101/53 11/13/20 08:10 Pulse Ox 97 11/13/20 08:10
== END ==
LOC: PNWHC3 07:56
PROVIDERS: ATTEND Specialist
DX: M47.816 Spondylosis without myelopathy or radiculopathy, lumbar region (principal)
CPT/HCPCS: 99211

== ENCOUNTER 2020-12-27 08:19 | Day surgery (SDC) | payer MEDICARE, BC ==
[2020-12-26 08:35] VITALS: BMI 31.0
[~2020-12-27 08:19] MED LIST changes: +LIDOCAINE 1% (10MG/ML) FOR IV START INTRADERMA PRN
[2020-12-27 08:43] VITALS: TEMP 98.2
[2020-12-27] MEDS ORDERED: LIDOCAINE 1% (10MG/ML) FOR IV START INTRADERMA ONE (08:48)
[2020-12-27] MEDS ORDERED: fentaNYL (PF) 50 MCG/ML 2 ML AMP ONE (09:07)
[2020-12-27] MEDS ORDERED: ROPIVACAINE 5MG/ML 20ML VIAL ONE (09:07)
[2020-12-27] MEDS ORDERED: methylPREDNISolone ACETATE 40 MG/ML 1 ML VIAL ONE (09:07)
[2020-12-27] MEDS ORDERED: MIDAZOLAM 2 MG/2 ML VIAL ONE (09:07)
--- NOTE | 2020-12-27 09:44 | P.PCN ---
Date of Procedure: 12/27/20 Procedure(s) Performed: PREOPERATIVE DIAGNOSIS: 1-Lumbar Spondylosis with Facet Arthropathy without myelopathy. 2- Lumber degenerative disc disease. POSTOPERATIVE DIAGNOSIS: 1- Lumbar Spondylosis with Facet Arthropathy without myelopathy. 2- Lumber degenerative disc disease. PROCEDURES : Bilateral Radiofrequency thermocoagulation L1 ,L2 ,L3 medial branch, with fluoroscopic guidance (fluoroscopy images available in the radiology department) ( to denervate the facet joint at Bilateral L2-3 ,L3-4 levels ). ANESTHESIA: Monitored anesthesia care as per anesthesia department EBL: Minimal PROCEDURE INDICATION: The patient with low back pain secondary to lumbar facet arthropathy who had more than 50% relief of her pain with previous diagnostic lumbar medial branch block with bupivacaine. PROCEDURE DESCRIPTION / TECHNIQUE: The patient was seen and identified in the preoperative area. Risks, benefits, complications, including but not limited to risk of infection ,bleeding , allergic reactions to the medications and no complete pain releife , and alternatives were discussed with the patient, the patient agreed to proceed with the procedure and signed the consent. IV was started. Vital signs remained stable throughout the procedure. Patient was taken to the OR and time out was completed. The patient was placed in the prone position on the procedure table. The lumber area was prepped and draped in the usual sterile fashion. . Vital signs were closely monitored during the procedure .IV sedation was used during the procedure to decrease patients anxiety. Using AP and then oblique fluoroscopy, the``eye of the Brannon dog "corresponding to the connection between the superior and transverse articular processes of right L1, L2, L3 were identified, marked, and localized with 1% lidocaine. Subsequently, a 18 [id number] radiofrequency cannula with a 10-mm active tip was advanced guided by fluoroscopy to each of the``eyes of the Brannon dog at right L1, L2, and L3. Each site then underwent sensory testing at 50 Hz and 0 to 1 volt and motor testing at 2.5 Hz and 0 to 3 volt with local stimulation, but no radicular symptoms down the legs. Thereafter each sites underwent radiofrequency thermocoagulation at 80 degrees celsius for 90 seconds after injecting 0.5 ml of PF Ropivacaine 1ml, then after the thermocoagulation done , 1 ml of the block solution containing Depo-Medrol 20 mg and 3 ml of Ropivacaine 0.5% was injected at the right L1 , L2 , and L3 , levels after negative aspiration of CSF and blood and with no paresthesias. Cannulas were retracted while injecting lidocaine 1% until the needle is out. The same procedure was repeated at the level of Left L1, L2, and L3 levels. At the end of the procedure, the skin was cleansed and bandages were applied. COMPLICATIONS: No acute complications. DISPOSITION / PLANS: The patient was placed in a supine position and transferred to the recovery area in a stable condition for observation and was discharged from the recovery room after meeting discharge criteria. Home discharge instructions given to the patient by the staff. The patient was reexamined prior to discharge. The patient will schedule a follow up in the clinic in 2-4 weeks.
[2020-12-27] MEDS ORDERED: IV FLUID CONTINUATION 900 ML IV ONE (09:46)
[2020-12-27 10:02] VITALS: BP 102/59; PULSE 51; RESP 16
--- NOTE | 2020-12-27 12:19 | FL ---
Fluoroscopy HISTORY: Pain 33 seconds fluoroscopy time supplied to the referring clinician. 6 intraoperative C-arm images docum ent the procedure. See dictated report from anesthesia.
== END 2020-12-27 10:20 | disposition home or self-care (01) ==
LOC: ORPAIN 08:19
PROVIDERS: ATTEND Specialist
DX: M51.36 Other intervertebral disc degeneration, lumbar region (principal); M47.816 Spondylosis without myelopathy or radiculopathy, lumbar region; I10 Essential (primary) hypertension; E78.5 Hyperlipidemia, unspecified; Z86.73 Personal history of transient ischemic attack (TIA), and cerebral infarction without residual deficits; Z85.46 Personal history of malignant neoplasm of prostate; Z79.899 Other long term (current) drug therapy; Z95.1 Presence of aortocoronary bypass graft
CPT/HCPCS: 64635; 64636; J2250; J1030; J3010; J2795

== ENCOUNTER → 2021-01-10 | Outpatient (CLI) | payer MEDICARE, BC ==
--- NOTE | 2021-01-10 22:32 | MR ---
EXAMINATION TYPE: MR brain wo/w con DATE OF EXAM: 01/10/2021 COMPARISON: Prior MRI brain May 15, 2011 HISTORY: Memory loss, left side numbness TECHNIQUE: Multiplanar, multisequence images of the brain and brainstem is performed without and with IV contras t, utilizing 9.5ml mL intravenous Gadavist . FINDINGS: Diffusion weighted images demonstrate no evidence of a recent infarct or other diffusion ab normality. [id number] ventricular and sulcal prominence redemonstrated. There is persistent ova l focus of CSF high left frontal region suspicious for arachnoid cyst with local mass effect measurin g roughly 4.3 x 3.9 cm axial image 29. Occasional punctate focus of T2 hyperintensity, less than 5 sc attered lesions are noted. Midline structures demonstrate normal morphology. The craniocervical junction appears within normal limits. Post contrast images demonstrate no abnormal enhancement. The dural venous sinuses appear pa tent. Mild mucosal thickening involving ethmoid sinuses bilaterally. Mild to moderate mucosal thicken ing right greater than left inferior maxillary sinuses. There is a 10 mm mucus retention cyst or poly p in the anterior left maxillary sinus. Globes are intact bilaterally. IMPRESSION: Fairly moderate diffuse cerebral atrophy redemonstrated with interval progression from 21 04 MRI. There is stable high left frontal 4.3 cm arachnoid cyst with local mass effect redemonstrated .
== END | disposition home or self-care (01) ==
LOC: RADMRIMAIN 18:29
PROVIDERS: ATTEND Psychiatry & Neurology Neurology
DX: G93.89 Other specified disorders of brain (principal)
CPT/HCPCS: 70553; A9585

== ENCOUNTER → 2021-01-13 | Outpatient (CLI) | payer MEDICARE, BC | END | disposition home or self-care (01) | LOC: LABWHC1 09:46 | PROVIDERS: ATTEND Urology | DX: C61 Malignant neoplasm of prostate (principal) | CPT/HCPCS: 36415; 84153 ==

== ENCOUNTER → 2021-01-20 | Outpatient (CLI) | payer MEDICARE, BC ==
[2021-01-20 14:16] VITALS: BP 102/44; PULSE 61; RESP 18
--- NOTE | 2021-01-20 14:42 | P.PN ---
Subjective Progress Note Date: 01/20/21 This is an 80-year-old gentleman with history of mostly axial lower back pain status post lumbar medial branch RFA for levels L1, L2, and L3 bilaterally. The patient had 100% of pain relief after the procedure but only for about 5 days and then the patient started to come back. His pain now is still tolerable. He also has chronic numbness in the left lateral thigh area. He states that he does not take anything for pain he just rests into the pain improves on its own. Patient denies new-onset weakness, bowel/bladder incontinence, or any other signs or symptoms of cauda equina syndrome. There are no signs of acute intoxication, and no indications of medication diversion or overuse. In addition to above, 13-point review of systems is also negative for chest pain, shortness of breath, changes in vision, changes in hearing, new onset weakness, abdominal pain, diarrhea, extreme fatigue, malaise, fever, skin changes, homicidal or suicidal ideation, or bowel or bladder incontinence. Vital Signs: Reviewed in EMR Gen: AAOx3, NAD HEENT: PERRLA,hearing grossly normal Pulm: resp unlabored Neck: supple, trachea midline Neuro exam of the lower extremities:symmetrical knee reflexes but absent ankle reflex is bilaterally Facet loading test: Positive bilaterally Tenderness in the paravertebral musculature: Mild tenderness in the lumbar paravertebral musculature bilaterally Neuro: CN II-XII grossly intact, Imaging: Reviewed in EMR/chart Assessment: Lumbar spondylosis without myelopathy Possible lateral femoral cutaneous nerve neuralgia Plan: 1. Explanation: When patients on opioids, opioid and psychological risk scores were reviewed. Diagnoses, prognoses, and multiple treatment options including but not limited to physical therapy, interventional therapies, adjuvant medical therapies, narcotic medication therapies, and surgery were discussed with the patient and all questions were answered to the patient's satisfaction. 2. Opioid agreement:When patients are prescribed opoids through our clinic, opioid agreement is signed with the patient and the patient is warned not to use opioids while driving or before driving and not to combine opioids with benzodiazepines or alcohol. 3. Counseling: When patient is smoking or obese, the patient was counseled extensively on SMOKING CESSATION, BODY MASS INDEX, EXERCISE. Specifically, the patient was instructed regarding the importance of smoking cessation, obesity, and exercise in the context of both chronic pain and overall health. 4. Procedures: None for now however if his pain becomes severe we can plan on doing the lumbar medial branch block for levels L4-L5 and L5-S1 bilaterally in the future 5. Consultations: None 6. Investigations: None 7. Medications: I asked the patient to use Tylenol Extra Strength for his pain more than 4-5 pills a day 8. Disposition: Return to clinic as needed 9. Maps were reviewed and were appropriate. Objective - Vital Signs Vital signs: Vital Signs Temp Pulse 61 01/20/21 14:11 Resp 18 01/20/21 14:11 BP 102/44 01/20/21 14:11 Pulse Ox 97 01/20/21 14:11
== END ==
LOC: PNWHC3 13:57
PROVIDERS: ATTEND Anesthesiology
DX: M47.816 Spondylosis without myelopathy or radiculopathy, lumbar region (principal)
CPT/HCPCS: 99211

== ENCOUNTER → 2021-03-17 | Outpatient (CLI) | payer MEDICARE, BC ==
[2021-03-17 20:39] LABS: Chol/HDL Ratio 2.36 Ratio; HDL Cholesterol 54.6 mg/dL (40.00-60.00); LDL Cholesterol,Calculated 64.8 mg/dL (0.0-131.0); Triglycerides 47.8 mg/dL (0.00-149.00); VLDL Calculation 9.56 mg/dL (5.00-40.00)
== END | disposition home or self-care (01) ==
LOC: LABWHC1 07:35
PROVIDERS: ATTEND Nurse Practitioner Adult Health
DX: E78.2 Mixed hyperlipidemia (principal)
CPT/HCPCS: 36415; 80061; 83721; 84450; 84460

== ENCOUNTER → 2021-09-12 | Outpatient (CLI) | payer MEDICARE, BC ==
[2021-09-12 10:56] LABS: African American GFR (CKD) 59.3 (60.0-200.0); Albumin 3.9 g/dL (3.8-4.9); Albumin/Globulin Ratio 1.34 (1.60-3.17); Anion Gap 9.7 mmol/L (10.00-18.00); BUN/Creat Ratio 19.69 Ratio (12.00-20.00); Blood Urea Nitrogen 25.6 mg/dL (9.0-27.0); Calcium 9.2 mg/dL (8.7-10.3); Carbon Dioxide 22.3 mmol/L (20.0-27.5); Globulin 2.9 g/dL (1.6-3.3); HDL Cholesterol 48.3 mg/dL (40.00-60.00); Non-African American GFR(CKD) 51.2 (60.0-200.0); Potassium 4.8 mmol/L (3.5-5.5); Total Bilirubin 0.5 mg/dL (0.30-1.20); Total Protein 6.8 g/dL (6.2-8.2)
[2021-09-12 11:11] LABS: Chol/HDL Ratio 2.3 Ratio; LDL Cholesterol,Direct Reflex 54.1 mg/dL (0.00-129.00)
== END | disposition home or self-care (01) ==
LOC: LABWHC1 07:14
PROVIDERS: ATTEND Nurse Practitioner Adult Health
DX: I10 Essential (primary) hypertension (principal); E78.2 Mixed hyperlipidemia
CPT/HCPCS: 36415; 80053; 80061; 83721

== ENCOUNTER → 2021-10-17 | Outpatient (CLI) | payer BC, MEDICARE ==
[2021-10-17 13:30] VITALS: RESP 18
--- NOTE | 2021-10-17 13:32 | P.GSHP ---
History of Present Illness H&P Date: 10/17/21 Chief Complaint: pain in the left nipple complex Ashish is an 10-year-old white male who presents with a complaint of pain in his left nipple and axillary area. The pain occurred in proximity to a second COVID booster. This was done about two months ago. The pain started in his left shoulder and behind the left nipple. Does not feel any lumps masses or nodules of concern in either breast. It is worse with touch. It is worse at night. He has no nipple discharge or changes. He has not had any mammograms or ultrasounds. He has not had any trauma, infection or surgery on his breast. He is never had any breast biopsies. The patient had prostate cancer in 2007. This was treated with radiation. note Dr. Moshe Graves reviewed Caffiene: 10 cups/day nicotine: heavy smoker until 35 chocolate: occasional hormones: none Family History: mother: breast cancer maternal grandmother: breast cancer maternal great grandmother: breast cancer 2 brothers: prostate cancer father: colon or prostate cancer patient: prostate and skin cancer Surgical History: triple bypass tonsil left rotater cuff surgery Medical History: Cholesterol Macular degeneration Hypertension JESSICA memory impairment Social History: Nicotine: Former smoker stopped at approximately age 35 Alcohol: Stopped 2007 used to drink beer Drugs: none - Constitutional Constitutional: Denies chills, Denies fever - EENT Comment: macular degeneration left eye Ears: bilateral: decreased hearing (hearing aids) Ears, nose, mouth and throat: Denies headache, Denies sore throat - Breasts Breasts: bilateral: as per HPI - Cardiovascular Comment: triple bypass - Respiratory Respiratory: Denies cough, Denies 7 - Gastrointestinal Gastrointestinal: Denies abdominal pain, Denies diarrhea, Denies nausea, Denies vomiting - Genitourinary (Female) Genitourinary: Denies dysuria, Denies hematuria - Genitourinary (Male) Genitourinary: Denies dysuria, Denies hematuria - Musculoskeletal Comment: uses a cane, arthritis - Integumentary Integumentary: Denies pruritus, Denies rash - Neurological Neurological: Denies numbness, Denies weakness - Psychiatric Psychiatric: Denies anxiety, Denies depression - Endocrine Endocrine: Denies fatigue, Denies weight change - Hematologic/Lymphatic Comment: baby aspirin - Allergic/Immunologic Allergic/Immunologic: Reports as per HPI Past Medical History Past Medical History: Cancer, CVA/TIA, Eye Disorder, Hyperlipidemia, Hypertension, Memory Impairment, Musculoskeletal Disorder, Osteoarthritis (OA), Prostate Disorder Additional Past Medical History / Comment(s): hx. prostate cancer 15 yrs. ago- radioactive seeds implanted, skin cancer, pancreatitis several years ago, TIA 5- 6 yrs. ago-memory impairment, macular degeneration left eye History of Any Multi-Drug Resistant Organisms: None Reported Past Surgical History: Coronary Bypass/CABG, Orthopedic Surgery, Tonsillectomy Additional Past Surgical History / Comment(s): triple bypass 15 yrs. ago, left rotator cuff repair, seeds for prostate cancer., pain clinic procedures Past Anesthesia/Blood Transfusion Reactions: No Reported Reaction Smoking Status: Former smoker - Past Family History Mother Family Medical History: Cancer Additional Family Medical History / Comment(s): Breast Father Family Medical History: Cancer Additional Family Medical History / Comment(s): Colon Medications and Allergies Home Medications Medication Instructions Recorded Confirmed Type Aspirin 81 mg PO DAILY 03/29/20 12/27/20 History Metoprolol Tartrate [Lopressor] 25 mg PO BID 03/29/20 12/27/20 History Olmesartan [Benicar] 20 mg PO DAILY 03/29/20 12/27/20 History Simvastatin [Zocor] 20 mg PO HS 03/29/20 12/27/20 History Triamterene/Hydrochlorothiazid 1 each PO DAILY 03/29/20 12/27/20 History [Triamterene-Hctz 37.5-25 mg Tb] Vit C/E/Zn/Coppr/Lutein/Zeaxan 1 each PO BID 03/29/20 12/27/20 History [Preservision Areds 2 Softgel] Multivit-Min/Folic/Vit K/Lycop 1 each PO DAILY 09/05/20 12/27/20 History [Men's Multivitamin Tablet] Tamsulosin HCl [Flomax] 0.4 mg PO DAILY 09/05/20 12/27/20 History Donepezil HCl [Aricept] 10 mg PO HS 11/11/20 12/27/20 History Allergies Allergy/AdvReac Type Severity Reaction Status Date / Time No Known Allergies Allergy Verified 12/27/20 08:31 Surgical - Exam - General no distress - Eyes normal ocular movement - ENT decreased hearing - Neck trachea midline - Respiratory normal respiratory effort - Cardiovascular Heart Sounds: normal: S1, S2 - Abdomen Abdomen: soft - Integumentary normal turgor - Musculoskeletal uses a cane - Psychiatric seen with his Breast exam: Inspection: Breast symmetric Palpation: Right breast: Multiple positional exam changes of gynecomastia but no dominant masses or nodules of concern Right axilla: No adenopathy of concern Left breast: Multiple positional exam changes of gynecomastia, no discrete dominant masses or nodules of concern the tender to palpation posterior to the left nipple areolar complex Left axilla: No adenopathy of concern Assessment and Plan Assessment: Impression: Pain posterior to left nipple areolar complex Pain left shoulder Prior history of prostate and skin cancer Strong family history of breast cancer high Cholesterol Macular degeneration Hypertension JESSICA memory impairment Plan: Bilateral mammogram Left breast ultrasound Follow up after these studies Cc: Dr. Moshe Graves
== END ==
LOC: WWCWWP 09:40
PROVIDERS: ATTEND Surgery
DX: N64.4 Mastodynia (principal); M25.512 Pain in left shoulder; Z80.3 Family history of malignant neoplasm of breast; E78.00 Pure hypercholesterolemia, unspecified; I10 Essential (primary) hypertension; H35.30 Unspecified macular degeneration; R41.3 Other amnesia; Z85.46 Personal history of malignant neoplasm of prostate; Z85.828 Personal history of other malignant neoplasm of skin; Z87.891 Personal history of nicotine dependence

== ENCOUNTER → 2021-11-06 | Outpatient (CLI) | payer MEDICARE ==
--- NOTE | 2021-11-07 12:03 | USB ---
Reason for Exam: Clinical finding. Patient History: Mother had breast cancer, age 40. Tissue Density: The breast tissue is almost entirely fat. Findings: Analyzed By CAD. Mammogram There is retroareolar flame-shaped density left greater than right L3 compatible with gynecomastia. Confirmation ultrasound is advised. Technique: Method: Whole Breast Handheld. Patient Position: Supine. Findings: The periareolar of both breasts was scanned. There is evidence of left-sided gynecomastia. Right breast is unremarkable. No masses present. Overall Assessment: Benign, BI-RAD 2 Assessment: MG 3D diag mammo w/cad DEVIN - Bilateral: Incomplete: need additional imaging evaluation, BI-RAD 0 - Left. US breast LT - Left: Benign, BI-RAD 2. Management: Clinical Correlation A clinical breast exam by your physician is recommended on an annual basis and results should be correlated with mammographic findings. Results were given to the patient verbally at the time of exam. Electronically signed and approved by: Tez Logan M.D. Radiologis
== END | disposition home or self-care (01) ==
LOC: RADMAMWWP 12:55
PROVIDERS: ATTEND Surgery
DX: R92.8 Other abnormal and inconclusive findings on diagnostic imaging of breast (principal); Z80.3 Family history of malignant neoplasm of breast
CPT/HCPCS: 77066; 76641; G0279; 77062

== ENCOUNTER → 2021-11-21 | Outpatient (CLI) | payer MEDICARE ==
[2021-11-21 13:35] VITALS: BP 112/58; PULSE 55; RESP 17; TEMP 98
--- NOTE | 2021-11-21 13:46 | P.PN ---
Subjective Progress Note Date: 11/21/21 Principal diagnosis: Gynecomastia left breast Ashish is an 81-year-old white male who presents with a complaint of pain in his left nipple and axillary area. The pain occurred in proximity to a second COVID booster. This was done several months ago. The pain started in his left shoulder and behind the left nipple. Does not feel any lumps masses or nodules of concern in either breast. It is worse with touch. It is worse at night. He has no nipple discharge or changes. He has not had any mammograms or ultrasounds. He has not had any trauma, infection or surgery on his breast. He is never had any breast biopsies. The patient had prostate cancer in 2007. This was treated with radiation. Mammogram and ultrasound of the left breast done on 11-06-21. Findings cosistent with gynecomastia. I have discussed these findings with the patient and his . At this time he is going to have conservative management. note Dr. Moshe Graves reviewed Caffiene: 10 cups/day nicotine: heavy smoker until 35 chocolate: occasional hormones: none Family History: mother: breast cancer maternal grandmother: breast cancer maternal great grandmother: breast cancer 2 brothers: prostate cancer father: colon or prostate cancer patient: prostate and skin cancer Surgical History: triple bypass tonsil left rotater cuff surgery Medical History: Cholesterol Macular degeneration Hypertension JESSICA memory impairment Social History: Nicotine: Former smoker stopped at approximately age 35 Alcohol: Stopped 2008 used to drink beer Drugs: none - Constitutional Constitutional: Denies chills, Denies fever - EENT Comment: macular degeneration left eye Ears: bilateral: decreased hearing (hearing aids) Ears, nose, mouth and throat: Denies headache, Denies sore throat - Breasts Breasts: bilateral: as per HPI - Cardiovascular Comment: triple bypass - Respiratory Respiratory: Denies cough - Gastrointestinal Gastrointestinal: Denies abdominal pain, Denies diarrhea, Denies nausea, Denies vomiting - Genitourinary (Female) Genitourinary: Denies dysuria, Denies hematuria - Genitourinary (Male) Genitourinary: Denies dysuria, Denies hematuria - Musculoskeletal Comment: uses a cane, arthritis - Integumentary Integumentary: Denies pruritus, Denies rash - Neurological Neurological: Denies numbness, Denies weakness - Psychiatric Psychiatric: Denies anxiety, Denies depression - Endocrine Endocrine: Denies fatigue, Denies weight change - Hematologic/Lymphatic Comment: baby aspirin - Allergic/Immunologic Allergic/Immunologic: Reports as per HPI Objective - Vital Signs Vital signs: Vital Signs Temp 98 F 11/21/21 13:32 Pulse 55 L 11/21/21 13:32 Resp 17 11/21/21 13:32 BP 112/58 11/21/21 13:32 Pulse Ox 100 11/21/21 13:32 FiO2 Intake & Output 11/20/21 11/21/21 11/21/21 18:59 06:59 18:59 Weight 95.254 kg Assessment and Plan Assessment: Impression: left breast gynecomastia Plan: follow up in 6 months or sooner if any questions or concerns CC: Dr. Moshe Graves
== END ==
LOC: WWCWWP 12:58
PROVIDERS: ATTEND Surgery
DX: N62 Hypertrophy of breast (principal); I10 Essential (primary) hypertension; Z87.891 Personal history of nicotine dependence

== ENCOUNTER → 2021-11-21 | Outpatient (CLI) | payer MEDICARE | END | disposition home or self-care (01) | LOC: LABWHC1 13:06 | PROVIDERS: ATTEND Family Medicine | DX: Z12.5 Encounter for screening for malignant neoplasm of prostate (principal) | CPT/HCPCS: 36415; 84153 ==

== ENCOUNTER → 2022-02-17 | Outpatient (CLI) | payer MEDICARE ==
[2022-02-17 14:27] LABS: African American GFR (CKD) 54.2 (60.0-200.0); Albumin 3.9 g/dL (3.8-4.9); Albumin/Globulin Ratio 1.3 (1.60-3.17); Anion Gap 9.9 mmol/L (10.00-18.00); BUN/Creat Ratio 21.79 Ratio (12.00-20.00); Blood Urea Nitrogen 30.5 mg/dL (9.0-27.0); Calcium 8.8 mg/dL (8.7-10.3); Carbon Dioxide 22.1 mmol/L (20.0-27.5); HDL Cholesterol 56.7 mg/dL (40.00-60.00); Non-African American GFR(CKD) 46.8 (60.0-200.0); Potassium 4.5 mmol/L (3.5-5.5); Total Bilirubin 0.4 mg/dL (0.30-1.20); Total Protein 6.9 g/dL (6.2-8.2); Triglycerides 35.6 mg/dL (0.00-149.00)
[2022-02-17 14:44] LABS: Chol/HDL Ratio 2.08 Ratio; LDL Cholesterol,Direct Reflex 59.4 mg/dL (0.00-129.00)
== END | disposition home or self-care (01) ==
LOC: LABWHC1 09:20
PROVIDERS: ATTEND Internal Medicine Interventional Cardiology
DX: E78.2 Mixed hyperlipidemia (principal)
CPT/HCPCS: 36415; 80053; 80061; 83721

== ENCOUNTER → 2022-09-18 | Outpatient (CLI) | payer MEDICARE ==
[2022-09-18 15:19] LABS: Basophils # (A) 0.05 X 10*3/uL (0.00-0.10); Basophils % (A) 0.8 %; Eosinophils # (A) 0.18 X 10*3/uL (0.04-0.35); Eosinophils % (A) 2.7 %; HCT 32.6 % (39.6-50.0); HGB 10.7 g/dL (13.0-17.0); Immature Grans, Automated 0.3 %; Lymphocytes # (A) 1.43 X 10*3/uL (0.90-5.00); Lymphocytes % (A) 21.6 %; MCH 32.9 pg (27.0-32.0); MCHC 32.8 g/dL (32.0-37.0); MCV 100.3 fL (80.0-97.0); Mean Platelet Volume 9.2 fL (9.5-12.2); Monocytes # (A) 0.69 X 10*3/uL (0.20-1.00); Monocytes % (A) 10.4 %; NRBC Per 100 WBC 0 /100 WBCS (0.0-0.0); Neutrophils # (A) 4.25 X 10*3/uL (1.80-7.70); Neutrophils % (A) 64.2 %; Platelet Count 234 X 10*3/uL (140-440); RBC 3.25 X 10*6/uL (4.40-5.60); RDW 12.5 % (11.5-14.5); WBC 6.62 X 10*3/uL (4.50-10.00)
[2022-09-18 16:36] LABS: ALT 21 U/L (10-49); AST 25 U/L (14-35); African American GFR (CKD) 51.6 (60.0-200.0); Albumin 3.8 g/dL (3.8-4.9); Alkaline Phosphatase 64 U/L (41-126); BUN/Creat Ratio 21.59 Ratio (12.00-20.00); Blood Urea Nitrogen 31.3 mg/dL (9.0-27.0); Calcium 9.1 mg/dL (8.7-10.3); Carbon Dioxide 23.2 mmol/L (20.0-27.5); Chloride 106 mmol/L (96-109); Chol/HDL Ratio 2.12 Ratio; Globulin 2.4 g/dL (1.6-3.3); Glucose 101 mg/dL (70-110); LDL Cholesterol,Calculated 53.7 mg/dL (0.0-131.0); Non-African American GFR(CKD) 44.5 (60.0-200.0); Potassium 4.8 mmol/L (3.5-5.5); Sodium 139 mmol/L (135-145); Total Protein 6.2 g/dL (6.2-8.2); VLDL Calculation 6.36 mg/dL (5.00-40.00)
== END | disposition home or self-care (01) ==
LOC: LABWHC1 08:18
PROVIDERS: ATTEND Internal Medicine Interventional Cardiology
DX: N18.9 Chronic kidney disease, unspecified (principal); E78.2 Mixed hyperlipidemia; Z85.46 Personal history of malignant neoplasm of prostate
CPT/HCPCS: 36415; 80053; 80061; 84439; 84443; 85025

== ENCOUNTER → 2022-11-05 | Outpatient (CLI) | payer MEDICARE | END | disposition home or self-care (01) | LOC: LABWHC1 14:45 | PROVIDERS: ATTEND Family Medicine | DX: Z85.46 Personal history of malignant neoplasm of prostate (principal) | CPT/HCPCS: 36415 ==

== ENCOUNTER → 2022-12-29 | Outpatient (CLI) | payer MEDICARE ==
--- NOTE | 2022-12-29 08:06 | US ---
EXAMINATION TYPE: US duplex aorta DATE OF EXAM: 12/29/2022 COMPARISON: NONE CLINICAL INDICATION: Male, 82 years old with history of I71.40 ABDOMINAL AORTIC ANEURYSM, WITHOUT RUP TURE,; assess known AAA TECHNIQUE: Multiple sonographic images of the abdominal aorta are obtained. FINDINGS: EXAM MEASUREMENTS: Abdominal Aorta: Proximal: gassed out Mid: 3.8 x 4.0cm Distal: 2.7 x 3.0cm Bifurcation: Rt = 1.8cm Lt = 1.7cm COMPUTER SCIENCE TEACHER NOTES: AAA infrarenal with calcification noted throughout, unable to visualize proximal a nilam due to gas IMPRESSION: Infrarenal abdominal aortic aneurysm
== END | disposition home or self-care (01) ==
LOC: RADUSWWP 07:01
PROVIDERS: ATTEND Family Medicine
DX: I71.43 Infrarenal abdominal aortic aneurysm, without rupture (principal)
CPT/HCPCS: 93979

== ENCOUNTER → 2023-02-22 | Outpatient (CLI) | payer MEDICARE ==
[2023-02-22 16:29] LABS: ALT 17 U/L (10-49); AST 21 U/L (14-35); Albumin/Globulin Ratio 1.54 Ratio (1.60-3.17); Alkaline Phosphatase 56 U/L (41-126); BUN/Creat Ratio 18.25 Ratio (12.00-20.00); Blood Urea Nitrogen 21.9 mg/dL (9.0-27.0); Calcium 9.4 mg/dL (8.7-10.3); Carbon Dioxide 25.3 mmol/L (21.6-31.8); Chloride 104 mmol/L (96-109); Chol/HDL Ratio 2.66 Ratio; Globulin 2.6 d/dL (1.6-3.3); Glucose 100 mg/dL (70-110); LDL Cholesterol,Calculated 71.6 mg/dL (0.0-131.0); Potassium 4.4 mmol/L (3.5-5.5); Sodium 140 mmol/L (135-145); Total Bilirubin 0.6 mg/dL (0.3-1.2); Total Protein 6.6 d/dL (6.2-8.2)
== END | disposition home or self-care (01) ==
LOC: LABWHC1 08:42
PROVIDERS: ATTEND Internal Medicine Interventional Cardiology
DX: E78.2 Mixed hyperlipidemia (principal)
CPT/HCPCS: 36415; 80053; 80061

== ENCOUNTER → 2023-08-27 | Outpatient (CLI) | payer MEDICARE ==
[2023-08-27 15:50] LABS: BUN/Creat Ratio 20.44 Ratio (12.00-20.00); Blood Urea Nitrogen 32.7 mg/dL (9.0-27.0); Chloride 105 mmol/L (96-109); Chol/HDL Ratio 2.19 Ratio; Glucose 97 mg/dL (70-110); LDL Cholesterol,Calculated 55.1 mg/dL (0.0-131.0); Potassium 4.8 mmol/L (3.5-5.5); Sodium 139 mmol/L (135-145); VLDL Calculation 7.48 mg/dL (5.00-40.00)
[2023-08-27 15:51] LABS: ALT 19 U/L (10-49); AST 24 U/L (14-35); Albumin 4.1 g/dL (3.8-4.9); Albumin/Globulin Ratio 1.58 Ratio (1.60-3.17); Alkaline Phosphatase 60 U/L (41-126); Calcium 9.4 mg/dL (8.7-10.3); Carbon Dioxide 24.6 mmol/L (21.6-31.8); Globulin 2.6 g/dL (1.6-3.3); Total Bilirubin 0.4 mg/dL (0.3-1.2); Total Protein 6.7 g/dL (6.2-8.2)
== END | disposition home or self-care (01) ==
LOC: LABWHC1 08:29
PROVIDERS: ATTEND Family Medicine
DX: Z00.00 Encounter for general adult medical examination without abnormal findings (principal); I10 Essential (primary) hypertension; E78.2 Mixed hyperlipidemia; D75.89 Other specified diseases of blood and blood-forming organs
CPT/HCPCS: 36415; 80053; 80061

== ENCOUNTER → 2023-10-26 | Outpatient (CLI) | payer MEDICARE ==
--- NOTE | 2023-10-26 09:10 | US ---
EXAMINATION TYPE: US duplex aorta DATE OF EXAM: 10/26/2023 COMPARISON: 12/29/2022 CLINICAL INDICATION: Male, 83 years old with history of I71.40 Abdominal aortic aneurysm w/o rupture; Follow up TECHNIQUE: Multiple sonographic images of the abdominal aorta are obtained. FINDINGS: EXAM MEASUREMENTS: Abdominal Aorta: Proximal: 1.7 x 2.2 cm Mid: 2.5 x 3.9 cm Distal: 2.5 x 2.9 cm Bifurcation: Right Iliac: 1.8 x 1.6 cm Left Iliac: 1.7 x 1.6 cm POLE CUTTER NOTES: Atherosclerotic changes and AAA visualized. IMPRESSION: Abdominal aortic aneurysm measuring up to 3.9 cm not significantly changed from 12/29/2022 when given differences in technique.
== END | disposition home or self-care (01) ==
LOC: RADUSWWP 08:15
PROVIDERS: ATTEND Family Medicine
DX: C61 Malignant neoplasm of prostate (principal); I71.40 Abdominal aortic aneurysm, without rupture, unspecified; Z86.79 Personal history of other diseases of the circulatory system
CPT/HCPCS: 84153; 93979

== ENCOUNTER → 2024-03-01 | Outpatient (CLI) | payer MEDICARE ==
[2024-03-01 16:29] LABS: ALT 16 U/L (10-49); AST 24 U/L (14-35); Albumin 3.8 g/dL (3.8-4.9); Albumin/Globulin Ratio 1.58 Ratio (1.60-3.17); Alkaline Phosphatase 55 U/L (41-126); BUN/Creat Ratio 19.07 Ratio (12.00-20.00); Blood Urea Nitrogen 28.6 mg/dL (9.0-27.0); Carbon Dioxide 24.9 mmol/L (21.6-31.8); Chloride 104 mmol/L (96-109); Globulin 2.4 g/dL (1.6-3.3); Glucose 95 mg/dL (70-110); LDL Cholesterol,Calculated 60.3 mg/dL (0.0-131.0); Potassium 4.7 mmol/L (3.5-5.5); Sodium 138 mmol/L (135-145); Total Bilirubin 0.3 mg/dL (0.3-1.2); Total Protein 6.2 g/dL (6.2-8.2); VLDL Calculation 6.26 mg/dL (5.00-40.00)
== END | disposition home or self-care (01) ==
LOC: LABWHC1 08:27
PROVIDERS: ATTEND Internal Medicine Interventional Cardiology
DX: E78.2 Mixed hyperlipidemia (principal)
CPT/HCPCS: 36415; 80053; 80061

== ENCOUNTER → 2024-08-17 | Outpatient (CLI) | payer MEDICARE ==
[2024-08-17 15:38] LABS: ALT 20 U/L (10-49); AST 28 U/L (14-35); Chol/HDL Ratio 2.46 Ratio; LDL Cholesterol,Calculated 54.3 mg/dL (0.0-131.0); VLDL Calculation 14.54 mg/dL (5.00-40.00)
== END | disposition home or self-care (01) ==
LOC: LABWHC1 07:53
PROVIDERS: ATTEND Internal Medicine Interventional Cardiology
DX: E78.2 Mixed hyperlipidemia (principal)
CPT/HCPCS: 36415; 80061; 84450; 84460

== ENCOUNTER 2024-11-27 15:23 | Emergency (ER) | payer MEDICARE ==
--- NOTE | 2024-11-27 15:54 | ED ---
Dizziness HPI - General Chief Complaint: Syncope Stated Complaint: Heat Exhaustion Time Seen by Provider: 11/27/24 15:32 Source: patient, EMS, RN notes reviewed Mode of arrival: EMS Limitations: no limitations - History of Present Illness Initial Comments: This is an 84-year-old male who presents to the emergency department for dizziness and a near syncopal episode. Patient was outside painting the deck in the heat and was not having much water. He started to become very weak and all of a sudden felt like he could not move and he was worried that he would pass out. He did not lose consciousness. His believes that he overheated. He states that this did happen once a couple of years ago in [place] when he was outside in the heat too long. Patient states that he currently feels fine. Denies any chest pain or shortness of breath. MD Complaint: near syncope - Related Data Home Medications Medication Instructions Recorded Confirmed Aspirin 81 mg PO DAILY 03/29/20 11/27/24 Olmesartan [Benicar] 10 mg PO DAILY 03/29/20 11/27/24 Simvastatin [Zocor] 20 mg PO HS 03/29/20 11/27/24 Triamterene/Hydrochlorothiazid 1 tab PO DAILY 03/29/20 11/27/24 [Triamterene-Hctz 37.5-25 mg Tb] Vit C/E/Zn/Coppr/Lutein/Zeaxan 1 cap PO BID 03/29/20 11/27/24 [Preservision Areds 2 Softgel] Multivit-Min/Folic/Vit K/Lycop 1 tab PO DAILY 09/05/20 11/27/24 [Men's Multivitamin Tablet] Doxazosin [Cardura] 4 mg PO DAILY 10/17/21 11/27/24 Candesartan [Atacand] 4 mg PO DAILY 11/27/24 11/27/24 Donepezil [Aricept] 20 mg PO DAILY 11/27/24 11/27/24 Memantine [Namenda] 5 mg PO DAILY 11/27/24 11/27/24 Allergies Allergy/AdvReac Type Severity Reaction Status Date / Time No Known Allergies Allergy Verified 11/27/24 16:46 Review of Systems ROS Statement: Those systems with pertinent positive or pertinent negative responses have been documented in the HPI. ROS Other: All systems not noted in ROS Statement are negative. Past Medical History Past Medical History: Cancer, CVA/TIA, Eye Disorder, Hyperlipidemia, Hypertension, Memory Impairment, Musculoskeletal Disorder, Osteoarthritis (OA), Prostate Disorder Additional Past Medical History / Comment(s): hx. prostate cancer 15 yrs. ago- radioactive seeds implanted, skin cancer, pancreatitis several years ago, TIA 5- 6 yrs. ago-memory impairment, macular degeneration left eye History of Any Multi-Drug Resistant Organisms: None Reported Past Surgical History: Coronary Bypass/CABG, Orthopedic Surgery, Tonsillectomy Additional Past Surgical History / Comment(s): triple bypass 15 yrs. ago, left rotator cuff repair, seeds for prostate cancer., pain clinic procedures Past Anesthesia/Blood Transfusion Reactions: No Reported Reaction Past Psychological History: No Psychological Hx Reported Smoking Status: Former smoker Past Alcohol Use History: None Reported Past Drug Use History: None Reported - Past Family History Mother Family Medical History: Cancer Additional Family Medical History / Comment(s): Breast Father Family Medical History: Cancer Additional Family Medical History / Comment(s): Colon General Exam Limitations: no limitations General appearance: alert, in no apparent distress Head exam: Present: atraumatic, normocephalic, normal inspection Respiratory exam: Present: normal lung sounds bilaterally. Absent: respiratory distress, wheezes, rales, rhonchi, stridor Cardiovascular Exam: Present: regular rate, normal rhythm Neurological exam: Present: alert, oriented X3, CN II-XII intact Psychiatric exam: Present: normal affect, normal mood Skin exam: Present: warm, dry, intact, normal color. Absent: rash Course Vital Signs 11/27/24 15:24 Temperature 97.7 F Pulse Rate 74 Respiratory 17 Rate Blood Pressure 126/66 O2 Sat by Pulse 97 Oximetry Medical Decision Making - Medical Decision Making This is an 84-year-old male who presents to the emergency department for dizziness. Was pt. sent in by a medical professional or institution? @ -No Did you speak to anyone other than the patient for history? @ -No Did you review nursing and triage notes? @ -Yes, and I agree, it is accurate with regards to the patient's symptoms. Were old charts reviewed? @ -No Differential Diagnosis? @ -Differential Dizziness: Benign paroxysmal positional Vertigo, Meniere's disease, otitis media, acoustic neuroma, vertebrobasilar insufficiency, cerebellar stroke, encephalitis, hypovolemic, arrhythmia, coronary artery syndrome, anemia, this is not meant to be an all-inclusive list EKG interpreted by me (3pts min.)? @ -EKG interpreted by me demonstrating the following: Sinus rhythm. Ventricular rate 69 bpm, NH interval 334 ms, QRS duration 102 ms, QTc 428 ms X-rays interpreted by me (1pt min.)? @ -Chest x-ray obtained, my interpretation identifies no localized consolidations or infiltrates. CT interpreted by me (1pt min.)? @ -Not obtained U/S interpreted by me (1pt. min.)? @ -Not obtained What testing was considered but not performed? (CT, X-rays, U/S, labs)? Why? @ -None What meds were considered but not given? Why? @ -None Did you discuss the management of the patient with other professionals? @ -No Did you reconcile home meds? @ -No Was smoking cessation discussed for >3mins.? @ -No Was critical care preformed (if so, how long)? @ -No Were there social determinants of health that impacted care today? How? (Homelessness, low income, unemployed, alcoholism, drug addiction, transportation, low edu. Level, literacy, decrease access to med. care, [facility], rehab)? @ -No Was there de-escalation of care discussed even if they declined? (Discuss DNR or withdrawal of care, Hospice)? @ -No What co-morbidities impacted this encounter? (DM, HTN, Smoking, COPD, CAD, Cancer, CVA, Hep., AIDS, mental health diagnosis, sleep apnea, morbid obesity)? @ -CAD, HLD, HTN Was patient admitted / discharged? @ -Discharged. Lab work demonstrates signs of dehydration. Renal i nsufficiency is slightly worse when compared with prior, however we have no particularly recent values for comparison. Chest x-ray reveals no acute findings. Patient was essentially asymptomatic when he came to the emergency department. 1 L of IV fluids administered. Patient continued to deny any symptoms and states that he still felt overall much better. Discussed with the patient that he needs to avoid significant physical activity when it is particularly hot outside and he also needs to make sure he consumes plenty of water. Patient expresses understanding and was discharged home in stable condition. Advised follow-up with his PCP for evaluation. Case discussed with ED attending Dr. Sanchez. Return precautions reviewed in depth, the patient is instructed to return to the emergency department with any new, worsening, or concerning symptoms. Patient verbalized understanding. Undiagnosed new problem with uncertain prognosis? @ -None Drug Therapy requiring intensive monitoring for toxicity (Heparin, Nitro, Insulin, Cardizem)? @ -None Were any procedures done? @ -None Diagnosis/symptom? @ -Heat exhaustion, near syncope Acute, or Chronic, or Acute on Chronic? @ -Acute Uncomplicated (without systemic symptoms) or Complicated (systemic symptoms)? @ -Uncomplicated Side effects of treatment? @ -None Exacerbation, Progression, or Severe Exacerbation] @ -Not applicable Poses a threat to life or bodily function? @ -No - Lab Data Result diagrams: 11/27/24 16:05 11/27/24 16:05 Lab Results 11/27/24 11/27/24 11/27/24 Range/Units 16:05 16:05 16:05 WBC 8.03 (4.50-10.00) 10*3/uL RBC 3.30 L (4.40-5.60) 10*6/uL Hgb 11.0 L (13.0-17.0) g/dL Hct 32.7 L (39.6-50.0) % MCV 99.1 H (80.0-97.0) fL MCH 33.3 H (27.0-32.0) pg MCHC 33.6 (32.0-37.0) g/dL Plt Count 206 (140-440) 10*3/uL MPV 8.8 L (9.5-12.2) fL Immature Gran % (Auto) 0.4 % Neutrophils % 80.6 % Lymphocytes % 11.0 % Monocytes % 7.0 % Eosinophils % 0.5 % Basophils % 0.5 % Immature Gran # 0.03 (0.00-0.04) 10*3/uL Neutrophils # 6.48 (1.80-7.70) 10*3/uL Lymphocytes # 0.88 L (0.90-5.00) 10*3/uL Monocytes # 0.56 (0.20-1.00) 10*3/uL Eosinophils # 0.04 (0.04-0.35) 10*3/uL Basophils # 0.04 (0.00-0.10) 10*3/uL PT 11.6 (10.0-12.5) sec INR 1.1 (<1.2) APTT 22.6 (22.0-30.0) sec Sodium 141 (137-145) mmol/L Potassium 4.0 (3.5-5.1) mmol/L Chloride 109 H (98-107) mmol/L Carbon Dioxide 18 L (22-30) mmol/L Anion Gap 14 mmol/L BUN 33 H (9-20) mg/dL Creatinine 1.62 H (0.66-1.25) mg/dL Est GFR (CKD-EPI)AfAm 44 (>60 ml/min/1.73 sqM) Est GFR (CKD-EPI)NonAf 38 (>60 ml/min/1.73 sqM) Glucose 107 H (74-99) mg/dL Calcium 8.7 (8.4-10.2) mg/dL Magnesium 1.9 (1.6-2.3) mg/dL Total Bilirubin 0.5 (0.2-1.3) mg/dL AST 26 (17-59) U/L ALT 18 (4-49) U/L Alkaline Phosphatase 52 (38-126) U/L Creatine Kinase 121 (55-170) U/L Troponin I (0.000-0.034) ng/mL Total Protein 6.5 (6.3-8.2) g/dL Albumin 3.8 (3.5-5.0) g/dL 11/27/24 Range/Units 16:05 WBC (4.50-10.00) 10*3/uL RBC (4.40-5.60) 10*6/uL Hgb (13.0-17.0) g/dL Hct (39.6-50.0) % MCV (80.0-97.0) fL MCH (27.0-32.0) pg MCHC (32.0-37.0) g/dL Plt Count (140-440) 10*3/uL MPV (9.5-12.2) fL Immature Gran % (Auto) % Neutrophils % % Lymphocytes % % Monocytes % % Eosinophils % % Basophils % % Immature Gran # (0.00-0.04) 10*3/uL Neutrophils # (1.80-7.70) 10*3/uL Lymphocytes # (0.90-5.00) 10*3/uL Monocytes # (0.20-1.00) 10*3/uL Eosinophils # (0.04-0.35) 10*3/uL Basophils # (0.00-0.10) 10*3/uL PT (10.0-12.5) sec INR (<1.2) APTT (22.0-30.0) sec Sodium (137-145) mmol/L Potassium (3.5-5.1) mmol/L Chloride (98-107) mmol/L Carbon Dioxide (22-30) mmol/L Anion Gap mmol/L BUN (9-20) mg/dL Creatinine (0.66-1.25) mg/dL Est GFR (CKD-EPI)AfAm (>60 ml/min/1.73 sqM) Est GFR (CKD-EPI)NonAf (>60 ml/min/1.73 sqM) Glucose (74-99) mg/dL Calcium (8.4-10.2) mg/dL Magnesium (1.6-2.3) mg/dL Total Bilirubin (0.2-1.3) mg/dL AST (17-59) U/L ALT (4-49) U/L Alkaline Phosphatase (38-126) U/L Creatine Kinase (55-170) U/L Troponin I <0.012 (0.000-0.034) ng/mL Total Protein (6.3-8.2) g/dL Albumin (3.5-5.0) g/dL - Radiology Data Radiology results: report reviewed, image reviewed Disposition Clinical Impression: Heat exhaustion, Near syncope Disposition: HOME SELF-CARE Instructions (If sedation given, give patient instructions): Heat Exhaustion (ED) Additional Instructions: Return to the emergency department with any new, worsening, or concerning symptoms. Avoid doing too much physical activity when it is particularly hot outside and make sure you drink plenty of fluids. Follow up with your primary care provider in 1-2 days. Is patient prescribed a controlled substance at d/c from ED?: No Referrals: Moshe Graves MD [Primary Care Provider] - 1-2 days Time of Disposition: 16:58
[2024-11-27 16:13] LABS: Basophils # (A) 0.04 10*3/uL (0.00-0.10); Basophils % (A) 0.5 %; Eosinophils # (A) 0.04 10*3/uL (0.04-0.35); Eosinophils % (A) 0.5 %; HCT 32.7 % (39.6-50.0); HGB 11.0 g/dL (13.0-17.0); Lymphocytes # (A) 0.88 10*3/uL (0.90-5.00); Lymphocytes % (A) 11.0 %; MCH 33.3 pg (27.0-32.0); MCHC 33.6 g/dL (32.0-37.0); MCV 99.1 fL (80.0-97.0); Monocytes # (A) 0.56 10*3/uL (0.20-1.00); Monocytes % (A) 7.0 %; Neutrophils # (A) 6.48 10*3/uL (1.80-7.70); Neutrophils % (A) 80.6 %; Platelet Count 206 10*3/uL (140-440); RBC 3.30 10*6/uL (4.40-5.60); RDW 12.4 % (11.5-14.5); WBC 8.03 10*3/uL (4.50-10.00)
[2024-11-27] MEDS: SODIUM CHLORIDE 0.9% 1,000 ML IV STA (16:20)
[2024-11-27 16:32] LABS: ALT 18 U/L (4-49); AST 26 U/L (17-59); African American GFR (CKD) 44 (>60 ml/min/1.73 sqM); Albumin 3.8 g/dL (3.5-5.0); Alkaline Phosphatase 52 U/L (38-126); Anion Gap 14 mmol/L; Blood Urea Nitrogen 33 mg/dL (9-20); Calcium 8.7 mg/dL (8.4-10.2); Carbon Dioxide 18 mmol/L (22-30); Chloride 109 mmol/L (98-107); Creatine Kinase 121 U/L (55-170); Glucose 107 mg/dL (74-99); Magnesium 1.9 mg/dL (1.6-2.3); Non-African American GFR(CKD) 38 (>60 ml/min/1.73 sqM); Potassium 4.0 mmol/L (3.5-5.1); Sodium 141 mmol/L (137-145); Total Protein 6.5 g/dL (6.3-8.2)
[2024-11-27 16:39] LABS: INR 1.1 (<1.2); Partial Thromboplastin Time 22.6 sec (22.0-30.0); Prothrombin Time 11.6 sec (10.0-12.5)
--- NOTE | 2024-11-27 16:39 | XR ---
EXAMINATION TYPE: XR chest 2V DATE OF EXAM: 11/27/2024 4:32 PM COMPARISON: Chest radiographs from 11/30/2018 TECHNIQUE: XR chest 2V Frontal and lateral views of the chest. CLINICAL INDICATION:Male, 84 years old with history of syncope; FINDINGS: Lungs/Pleura: There is no evidence of pleural effusion, focal consolidation, or pneumothorax. Pulmonary vascularity: Unremarkable. Heart/mediastinum: Cardiomediastinal silhouette is enlarged and stable. Post-CABG changes. Atheroscle rotic calcifications are seen in the aorta. Musculoskeletal: Multiple level degenerative disc disease changes seen throughout the spine. Midline sternotomy wires are noted and stable. IMPRESSION: Chronic changes without acute pulmonary process. No significant change from prior. [facility], , 11/27/2024 4:37 PM
[2024-11-27 18:01] VITALS: BP 126/70; PULSE 78; RESP 20; TEMP 98
== END 2024-11-27 18:03 | disposition home or self-care (01) ==
LOC: EC 15:23
DX: T67.5XXA Heat exhaustion, unspecified, initial encounter (principal); I10 Essential (primary) hypertension; E78.5 Hyperlipidemia, unspecified; Z86.73 Personal history of transient ischemic attack (TIA), and cerebral infarction without residual deficits; Z87.891 Personal history of nicotine dependence
CPT/HCPCS: 36415; 71046; 80053; 82550; 83735; 84484; 85025; 85610; 85730; 96360; 99284